=== PATIENT | female | born 1970 | race Caucasian/White ===

== ENCOUNTER → 2020-08-19 11:05 | Outpatient (BNVA) | payer OTHER, SELFPAY | PROVIDERS: PCP Nurse Practitioner; Referring Provider Nurse Practitioner; Visit Provider Specialist | DX: M25.511 Pain in right shoulder (principal) | CPT/HCPCS: 73030 ==

== ENCOUNTER 2021-01-25 10:14 | Outpatient (CLI) | payer OTHER, SELFPAY ==
--- NOTE | 2021-01-25 10:21 | MM_ITS ---
WS: [id number] BILATERAL SCREENING DIGITAL MAMMOGRAM WITH CAD HISTORY: SCREENING COMPARISON: 06/15/2017 and 09/29/2016 Bilateral CC and MLO views submitted. Computer aided detection analyzed. Breast composition: The breasts are almost entirely fatty. No suspicious masses, microcalcifications or architectural distortion. Benign calcifications in each breast. MM/[place] [address] IMPRESSION: BI-RADS: 2-Benign FOLLOW UP: 1 Year Follow-up
== END 2021-01-25 10:15 | disposition home or self-care (01) ==
LOC: RADSHAW 10:19
PROVIDERS: PCP Nurse Practitioner; Visit Provider Nurse Practitioner
DX: Z12.31 Encounter for screening mammogram for malignant neoplasm of breast (principal)
CPT/HCPCS: 77067

== ENCOUNTER 2021-02-01 09:25 | Inpatient (IN) | payer OTHER, SELFPAY ==
[2021-02-01] VITALS (76 sets, daily range): BP systolic 97–180; BP diastolic 47–87; PULSE 32–99; RESP 12–29; TEMP 36.6–36.9; O2SAT 82–100; BMI 31.9
--- NOTE | 2021-02-01 09:06 | ED_ITS ---
HPI - Chest Pain General: Chief Complaint: Chest Pain Stated Complaint: CP History of Present Illness: HPI narrative: 50-year-old female presents emergency room with complaint of chest pain that began this morning when she first got up. There is nothing anything that exacerbates or relieves it. Patient initially got up this morning and was not feeling well she had chest pain for about 3 hours. Radiated into her back she has some mild shortness of breath with this and diaphoresis she did have nausea and vomiting and loose acholic stools to the point of having diarrhea. She refers her chest pain to the lower sternal area radiating into the back. She states she initially thought it was due to food poisoning last night she ate several items she does not usually have including ice cream cake onion rings and moderate amount of alcohol. Patient has a history of asthma which is controlled by a and occasional use of as needed albuterol no history of diabetes hypertension or heart disease. MD complaint: chest pain Onset (ago): minute(s) Timing of current episode: constant Onset: during rest Pain location: substernal Pain radiation: back Severity: moderate Quality: sharp Relieving factors: nothing Exacerbating factors: nothing Associated symptoms: Reports nausea and vomiting; Deny abdominal pain, diaphoresis, dyspnea, fever(s), leg edema, palpitations, sense of impending doom or syncope Treatment prior to arrival: none Review of Systems Const: Denies: fever(s) or diaphoresis ENMT: Denies: throat pain, ear or mastoid pain, nasal discharge or nasal congestion Card: Denies: palpitations or syncope Resp: Denies: dyspnea GI: Reports: nausea and vomiting; Denies: abdominal pain : Denies: flank pain, difficulty voiding, dysuria, urinary frequency or urinary urgency Skin/Breast: Denies: rash or pruritus Physical Exam Const: COMMON NORMALS: no acute distress GENERAL APPEARANCE: cooperative and comfortable ORIENTATION/CONSCIOUSNESS: Yes awake, Yes oriented to person, Yes oriented to place and Yes oriented to time Neck/C-Spine: COMMON NORMALS: no JVD Resp: COMMON NORMALS: normal respiratory effort, No retractions, No use of accessory muscles and clear to auscultation bilaterally AUSCULTATION: clear to auscultation bilaterally Cardio: COMMON NORMALS: no JVD, regular rate, regular rhythm and No murmurs present (Cardio) RATE: regular rate RHYTHM: regular rhythm GI: COMMON NORMALS: No hepatosplenomegaly present AUSCULTATION: Yes normoactive bowel sounds PALPATION: Yes Tenderness to palpation present (GI) Details: RUQ, No Guarding due to palpation present (GI) and Yes No hepatosplenomegaly present Extremity: COMMON NORMALS: normal to inspection, capillary refill normal, no clubbing, cyanosis or edema, no calf tenderness and no pedal edema Neuro: SENSORIUM/ORIENTATION: Yes oriented to person, Yes oriented to place and Yes oriented to time Skin: COMMON NORMALS: no rashes or lesions noted GENERAL SKIN EXAM: no rashes or lesions noted Course Vital Signs: Vital signs: Vital Signs Temperature 98.3 F 02/02/21 19:55 Pulse Rate 71 02/03/21 06:00 Respiratory Rate 21 H 02/03/21 02:17 Blood Pressure 110/80 02/03/21 02:17 Pulse Oximetry 98 02/03/21 02:17 MDM - Chest Pain MDM Narrative: Medical decision making narrative: Acute NSTEMI with no evidence of ST elevation. Labs imaging and EKGs reviewed. Patient has been loaded with Plavix started on Lovenox and nitro. Discussed Dr. Combs patient is pain-free at this time he will admit primarily. Lab Data: Labs: Lab Results 02/01/21 02/01/21 02/01/21 09:09 09:09 09:09 WBC 15.3 10^3/uL H 10 ^3/uL (4.0-10.0) RBC 4.83 10^6/uL 10^6 /uL (4.1-5.3) Hgb 14.5 g/dL g/dL (11.5-15.3) Hct 43.8 % % (37.0-47.0) MCV 90.7 fl fl (81-99) MCH 30.0 pg pg (28.0-34.0) MCHC 33.1 g/dL g/dL (30.0-36.0) RDW 13.0 % % (12.1-15.1) Plt Count 339 10^3/cmm 10^3 /cmm (130-400) MPV 11.2 fL H fL (7.4-10.4) Neut % (Auto) 72.9 % % Lymph % (Auto) 19.2 % % [place] % (Auto) 4.3 % % Eos % (Auto) 2.6 % % Baso % (Auto) 0.7 % % Neut # (Auto) 11.15 10^3/uL H 1 0^3/uL (1.8-7.7) Lymph # (Auto) 2.9 10^3/uL 10^3/ uL (0.8-4.8) [place] # (Auto) 0.7 10^3/uL 10^3/ uL (0.2-0.9) Eos # (Auto) 0.4 10^3/uL 10^3/ uL (0.0-0.8) Baso # (Auto) 0.1 10^3/uL 10^3/ uL (0.0-0.1) Nucleated RBC % (a uto) 0 % % Nucleated RBCs # 0.0 /100WBC /100W BC Sodium 141 mmol/L mmol/L (136-145) Potassium 3.8 mmol/L mmol/L (3.5-5.1) Chloride 103 mmol/L mmol/L (98-107) Carbon Dioxide 24 mmol/L mmol/L (22-29) Anion Gap 17.8 (5-19) BUN 10 mg/dL mg/dL (6-20) Creatinine 0.7 mg/dL mg/dL (0.5-0.9) GFR Calculation 87.9 mL/min L mL/ min (90-130) Glucose 110 mg/dL mg/dL (65-115) Calculated Osmolal ity 292 mOsm/kg mOsm/ kg (285-295) Calcium 9.5 mg/dL mg/dL (8.5-10.5) Total Bilirubin 0.2 mg/dL mg/dL (0.15-1.2) AST 20 U/L U/L (0-32) ALT 11 U/L U/L (0-33) Alkaline Phosphata se 68 IU/L IU/L (35-105) Troponin T Baselin e 427 ng/L H* ng/L (0-10) Troponin T 120 Min jacquelyn Delta Troponin T Total Protein 7.0 g/dL g/dL (6.6-8.7) Albumin 4.4 g/dL g/dL (3.5-5.2) Globulin 2.6 g/dL g/dL (1.3-4.6) Lipase 31 U/L U/L (13-60) 02/01/21 11:30 WBC RBC Hgb Hct MCV MCH MCHC RDW Plt Count MPV Neut % (Auto) Lymph % (Auto) [place] % (Auto) Eos % (Auto) Baso % (Auto) Neut # (Auto) Lymph # (Auto) [place] # (Auto) Eos # (Auto) Baso # (Auto) Nucleated RBC % (a uto) Nucleated RBCs # Sodium Potassium Chloride Carbon Dioxide Anion Gap BUN Creatinine GFR Calculation Glucose Calculated Osmolal ity Calcium Total Bilirubin AST ALT Alkaline Phosphata se Troponin T Baselin e Troponin T 120 Min jacquelyn 683.1 ng/L H ng/L (0-10) Delta Troponin T 256.1 ABS# H* ABS # (0-10) Total Protein Albumin Globulin Lipase Discharge Plan Discharge Patient Disposition: Admitted As Inpatient Admit Provider: Kaila Combs Clinical Impression: Non-ST elevation ID (NSTEMI) Condition: Stable Coding Level of Care Code ED Shaper Set Up Operator for Chg Fwd Exam Detailed
--- NOTE | 2021-02-01 09:13 | US_ITS ---
WS: [id number] RIGHT UPPER QUADRANT ULTRASOUND HISTORY: Abdominal pain with nausea and vomiting. COMPARISON: None available. Liver: 16.1 cm in length. Liver is top normal size. No mass or bile duct dilatation. Very early herrera es of mild hepatic steatosis are suspected. Gallbladder: Normally distended gallbladder with no stones or wall thickening. CBD: 0.5 cm Pancreas: Normal size and echogenicity. Right kidney: 9.9 cm in length. Normal size and echogenicity. No hydronephrosis or mass. Aorta and IVC: Unremarkable abdominal aorta and IVC. No ascites. US/US gall bladder 15360 IMPRESSION: 1. Normal gallbladder. 2. Very mild early changes of hepatic steatosis. Otherwise negative.
--- NOTE | 2021-02-01 09:15 | ECG_ITS ---
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 Measurements Intervals [place] Rate: 51 P: 37 [place]: 174 QRS: 76 QRSD: 72 T: 55 QT: 429 QTc: 397 Interpretive Statements SINUS BRADYCARDIA LOW QRS VOLTAGE IN PRECORDIAL LEADS [QRS DEFLECTION < 1.0 mV IN CHEST LEADS] SEPTAL MYOCARDIAL INFARCTION , OF INDETERMINATE AGE [40+ ms Q WAVE IN V1/V2] No previous ECG available for comparison Electronically Signed On 02-01-2021 22:12:35 CDT by Nils Garcia M.D. [id number]
[2021-02-01 09:29] LABS: Basophils # 0.1 10^3/uL (0.0-0.1); Basophils % 0.7 %; Eosinophils # 0.4 10^3/uL (0.0-0.8); Eosinophils % 2.6 %; Hematocrit 43.8 % (37.0-47.0); Hemoglobin 14.5 g/dL (11.5-15.3); Lymphocytes # 2.9 10^3/uL (0.8-4.8); Lymphocytes % 19.2 %; Mean Corpuscular HGB Conc 33.1 g/dL (30.0-36.0); Mean Corpuscular Volume 90.7 fl (81-99); Mean Platelet Volume 11.2 fL (7.4-10.4); Monocytes # 0.7 10^3/uL (0.2-0.9); Monocytes % 4.3 %; Neutrophils # 11.15 10^3/uL (1.8-7.7); Neutrophils % 72.9 %; Nucleated Red Blood Cells % 0 %; Platelet Count 339 10^3/cmm (130-400); Red Blood Count 4.83 10^6/uL (4.1-5.3); White Blood Count 15.3 10^3/uL (4.0-10.0)
[2021-02-01] MEDS: sodium chloride 0.9% 1,000 ML 999 ML IV (09:37)
[2021-02-01 09:47] LABS: Alanine Aminotransferase 11 U/L (0-33); Albumin Level 4.4 g/dL (3.5-5.2); Alkaline Phosphatase 68 IU/L (35-105); Anion Gap 17.8 (5-19); Aspartate Amino Transferase 20 U/L (0-32); Blood Urea Nitrogen 10 mg/dL (6-20); Calcium 9.5 mg/dL (8.5-10.5); Carbon Dioxide 24 mmol/L (22-29); Chloride 103 mmol/L (98-107); Globulin 2.6 g/dL (1.3-4.6); Glomerular Filtration Rate 87.9 mL/min (90-130); Glucose 110 mg/dL (65-115); Lipase 31 U/L (13-60); Osmolality Calculated 292 mOsm/kg (285-295); Potassium 3.8 mmol/L (3.5-5.1); Sodium 141 mmol/L (136-145); Total Bilirubin 0.2 mg/dL (0.15-1.2)
[2021-02-01 09:58] LABS: Troponin(5th) Baseline 427 ng/L (0-10)
[2021-02-01] MEDS: aspirin 81 mg Chew Tablet 324 MG PO (10:09)
[2021-02-01] MEDS: enoxaparin 100 mg/mL Syringe 90 MG SUBCUT (10:10)
[2021-02-01] MEDS: clopidogrel 300 mg Tablet 600 MG PO (10:10)
[2021-02-01] MEDS: morphine 4 mg/mL SDV 1 mL 2 MG IVP ×2 (10:11→19:48)
--- NOTE | 2021-02-01 11:15 | ECG_ITS ---
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 Measurements Intervals [place] Rate: 52 P: 72 MN: 176 QRS: 53 QRSD: 77 T: 88 QT: 427 QTc: 399 Interpretive Statements SINUS BRADYCARDIA LOW QRS VOLTAGE IN PRECORDIAL LEADS [QRS DEFLECTION < 1.0 mV IN CHEST LEADS] NONSPECIFIC T-WAVE ABNORMALITY Compared to ECG 02/01/2021 10:29:29 Sinus rhythm no longer present T-wave abnormality still present Electronically Signed On 02-01-2021 22:11:48 CDT by Nils Garcia M.D. [id number]
--- NOTE | 2021-02-01 11:15 | ECG_ITS ---
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 Measurements Intervals [place] Rate: 60 P: 64 NC: 175 QRS: 64 QRSD: 86 T: 89 QT: 413 QTc: 416 Interpretive Statements SINUS RHYTHM LOW QRS VOLTAGE IN PRECORDIAL LEADS [QRS DEFLECTION < 1.0 mV IN CHEST LEADS] POSSIBLE RIGHT VENTRICULAR CONDUCTION DELAY [RSR (QR) IN V1/V2] NONSPECIFIC T-WAVE ABNORMALITY Compared to ECG 02/01/2021 09:17:41 T-wave abnormality now present Sinus bradycardia no longer present Myocardial infarct finding no longer present Electronically Signed On 02-01-2021 22:22:33 CDT by Nils Garcia M.D. [id number]
[2021-02-01 12:31] LABS: Troponin 5 2HR 683.1 ng/L (0-10); Troponin 5 2HR Delta 256.1 ABS# (0-10)
--- NOTE | 2021-02-01 13:23 | PC.PHAR ---
PT STATES SHE TAKES NO RX MEDICATION-[facility] EITHER
--- NOTE | 2021-02-01 15:15 | ECG_ITS ---
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 Measurements Intervals [place] Rate: 59 P: 58 MO: 184 QRS: 52 QRSD: 82 T: 90 QT: 411 QTc: 409 Interpretive Statements SINUS BRADYCARDIA LOW QRS VOLTAGE IN PRECORDIAL LEADS [QRS DEFLECTION < 1.0 mV IN CHEST LEADS] POSSIBLE RIGHT VENTRICULAR CONDUCTION DELAY [RSR (QR) IN V1/V2] NONSPECIFIC T-WAVE ABNORMALITY Compared to ECG 02/01/2021 11:21:46 No significant changes Electronically Signed On 02-01-2021 22:21:01 CDT by Nils Garcia M.D. [id number]
[2021-02-01 17:30] LABS: Troponin 5 6HR 658.2 ng/L (0-10); Troponin 5 6HR Delta 231.2 ng/L (0-12)
--- NOTE | 2021-02-01 18:00 | PC.NURSE ---
Patient c/o mild chest pain under left breast. Patient rates pain at 2/10. Oxygen placed on patient at 2l/nc and pain resolved in 15 minutes.
[2021-02-01] MEDS: D5-NS 0.45% + KCL 20 mEq 20 MEQ/1,000 ML BAG 100 MEQ IV (18:11)
--- NOTE | 2021-02-01 19:16 | PM.HP ---
Providers/Chief Complaint Admitting Physician: Kaila Combs MD Chief Complaint: CP History of Present Illness Emiliana Shea is a 50 year old female past medical history significant for strong family's of coronary artery disease, non-smoker nondiabetic started having diarrhea diaphoresis and abdominal pain radiating to her chest. After a few hours she decided to come to the emergency room. Initially it was thought she may have a gallstone but she was ruled in with third-generation troponin which peaked to 600. Abdominal ultrasound also ruled out acute cholecystitis. She was also noticed to be bradycardic therefore beta-fernando was not started she was given Lovenox as an anticoagulation and loaded with 600 mg of Plavix. I have been asked to assist in her care when I saw the patient at that time she was denying chest pain she think it is much better and almost resolved. She has been admitted to [facility] for possible left heart cath/PCI if indicated in the morning. Patient has been explained all risk benefit and already for the procedure she would like to proceed with it. I will ask for echocardiogram to assess LV function . Review of Systems Const: Denies: fever(s) or diaphoresis ENMT: Denies: throat pain, ear or mastoid pain, nasal discharge or nasal congestion Card: Denies: palpitations or syncope Resp: Denies: dyspnea GI: Reports: nausea and vomiting; Denies: abdominal pain : Denies: flank pain, difficulty voiding, dysuria, urinary frequency or urinary urgency Skin/Breast: Denies: rash or pruritus Medications/Allergies Home Medications Medication Instructions Recorded Confirmed Last Taken Type aspirin [Adult Aspirin Regimen] 81 mg PO DAILY #90 tab 02/03/21 02/10/21 Unknown Rx atorvastatin 80 mg PO BEDTIME #30 tab 02/03/21 02/10/21 Unknown Rx ciprofloxacin HCl 250 mg PO BID@0900,2100 #14 tab 02/03/21 02/10/21 Unknown Rx clopidogrel 75 mg PO DAILY #90 tab 02/03/21 02/10/21 Unknown Rx lisinopril 2.5 mg PO DAILY #30 tab 02/03/21 02/10/21 Unknown Rx metoprolol succinate 12.5 mg PO DAILY #60 tab 02/03/21 02/10/21 Unknown Rx albuterol sulfate 90 mcg/actuation 1 puff INHALATION QID 02/10/21 02/10/21 Unknown History aerosol inhaler Allergies Allergy/AdvReac Type Severity Reaction Status Date / Time ANESTHESIA Allergy Unknown Uncoded 02/10/21 11:14 PFSH Acute PFSH: Medical History (Updated 02/10/21 @ 11:42 by CHITRA Borges) Takotsubo cardiomyopathy Social History Smoking and tobacco status: former smoker Vitals/I&O/Wt Last Vital Signs Temp 98.2 F 02/01/21 18:29 Pulse 68 02/01/21 18:29 Resp 12 02/01/21 18:29 BP 117/79 02/01/21 18:29 Pulse Ox 97 02/01/21 18:29 02/01/21 02/01/21 02/01/21 06:59 14:59 22:59 Intake Total 120 / 120 Balance 120 / 120 Weight last 48 hrs Weight 198 lb Physical Exam Narrative: EXAM NARRATIVE: GENERAL: Patient is alert, awake and oriented x3. NECK: No jugular vein distension. HEENT: No cyanosis. No icterus. No pallor. HEART: Regular S1 and S2. No murmur, rub or gallop. LUNGS: Clear to auscultate bilaterally. ABDOMEN: Soft, nontender and nondistended. Positive bowel sounds. No guarding, rebound or tenderness. CENTRAL NERVOUS SYSTEM: Grossly nonfocal. EXTREMITIES: Lower extremities without edema bilaterally. Data : 02/03/21 05:39 02/03/21 05:39 A&P Assessment and plan (1) Non-ST elevation GA (NSTEMI): As above we will admit patient to CSU. She has been loaded with Plavix given aspirin. She is on anticoagulation. Beta-fernando is on hold due to bradycardia. Currently she is chest pain-free we will monitor her with telemetry. In the morning we will proceed with left heart cath/PCI if indicated. I will ask for echocardiogram to assess LV function. Status: Resolved Attestations Medical Necessity Statement*: I am expecting her stay to cross more than 2 midnights. Coding Level of Care Code New Pt Acute Upper And Bottom Lacer Hand for Durga Fwd Patient Type New History Detailed Exam Detailed Medical Decision Making Moderate Complexity Diagnoses Non-ST elevation GA (NSTEMI) I21.4
[2021-02-01] MEDS: atorvastatin 40 mg Tablet 80 MG PO (19:49)
[2021-02-01] MEDS: ondansetron 2 mg/ML SDV 2 mL 4 MG IVP (22:14)
[2021-02-02] VITALS (27 sets, daily range): BP systolic 101–127; BP diastolic 62–95; PULSE 61–83; RESP 14–29; TEMP 36.8; O2SAT 86–97
--- NOTE | 2021-02-02 04:38 | PC.NURSE ---
Frequent safety and comfort rounds continue. Orders and/or nursing care completed as indicated. Patient monitored for response to intervention and treatment(s). Education provided includes cardiac catherization procedure for today. Medications and what to expect. 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 Will continue to monitor. Patient to go to medical laboratory technicians today at 10am. NS infusing. Patient prepped for surgery.
[2021-02-02 04:47] LABS: Basophils # 0.1 10^3/uL (0.0-0.1); Basophils % 0.5 %; Eosinophils # 0.1 10^3/uL (0.0-0.8); Eosinophils % 0.7 %; Hematocrit 42.2 % (37.0-47.0); Hemoglobin 13.5 g/dL (11.5-15.3); Lymphocytes # 3.6 10^3/uL (0.8-4.8); Lymphocytes % 21.4 %; Mean Corpuscular Hemoglobin 29.5 pg (28.0-34.0); Mean Corpuscular Volume 92.3 fl (81-99); Mean Platelet Volume 11.3 fL (7.4-10.4); Monocytes # 0.9 10^3/uL (0.2-0.9); Monocytes % 5.6 %; Neutrophils # 11.98 10^3/uL (1.8-7.7); Neutrophils % 71.4 %; Nucleated Red Blood Cells % 0 %; Platelet Count 289 10^3/cmm (130-400); Red Blood Count 4.57 10^6/uL (4.1-5.3); Red Cell Distribution Width 13.3 % (12.1-15.1); White Blood Count 16.8 10^3/uL (4.0-10.0)
[2021-02-02 05:14] LABS: Anion Gap 13.2 (5-19); Blood Urea Nitrogen 7 mg/dL (6-20); Calcium 8.9 mg/dL (8.5-10.5); Carbon Dioxide 26 mmol/L (22-29); Chloride 105 mmol/L (98-107); Glomerular Filtration Rate 87.9 mL/min (90-130); Glucose 115 mg/dL (65-115); Osmolality Calculated 289 mOsm/kg (285-295); Potassium 4.2 mmol/L (3.5-5.1); Sodium 140 mmol/L (136-145)
--- NOTE | 2021-02-02 07:17 | PC.NURSE ---
Frequent safety and comfort rounds continue. Orders and/or nursing care completed as indicated. Patient monitored for response to intervention and treatment(s). Education provided includes pain and nausea medications. Patient and/or senior account representative verbalized understanding. . Will continue to monitor.
[2021-02-02 08:14] LABS: SARS Covid-2 Antigen Negative (Negative)
[2021-02-02] MEDS: diphenhydrAMINE 50 mg Capsule PO (09:16)
[2021-02-02] MEDS: sodium chloride 0.9% 1,000 ML 50 ML IV (09:17)
[2021-02-02] MEDS: ALPRAZolam 0.5 mg Tablet 0.25 MG PO (09:40)
--- NOTE | 2021-02-02 09:41 | XACV_ITS ---
Exam Room: [facility] Ht: 168 cm Wt: 90 kg BSA: 2.08 m2 Gender: Female : 1970 Exam Priority: Routine Procedure(s): Procedure Description: Diagnostic procedure Procedure Description: Left Heart Catheterization Procedure Description: Left ventriculography Procedure Description: Coronary Angiography Garret KIRK; Diagnostic Cath Status: Urgent Diagnostic Findings * No disease noted in the Left Main, Left Anterior Descending, Right, or Circumflex coronary arteries. * Coronary angiography shows right dominance. Conclusions 1. No disease noted in the Left Main, Left Anterior Descending, Right, or Circumflex coronary arteries. 2. The apex, mid posterior, mid septum, anterolateral, mid inferior santiago are dyskinetic. 3. All other visualized santiago normal. 4. Severe left ventricular systolic dysfunction. Ejection fraction of 25%. Recommendations * 1-Return to inpatient for close monitoring and routine cath care2-Risk factor modification for secondary prevention3-Statin and aspirin 81 mg life--long, if tolerated4-Patient was pre-loaded with 300 mg of Plavix, continue Plavix 75mg p.o. daily for at least one year. We will assess at the end of one year again to continue if further or not5-Continue optimal medical management for stress-induced cardiomyopathy6-Follow up with Dr. Combs in four weeks and your primary care in 10 days. Diagnostic RX Recommendation: medical therapy and/or counseling Ventriculography Ejection Fraction: 25.0 % Pressures Phase:Rest AO : 114 / 79 ( 95 ) @ 9:28:00 AM 138 / 66 ( 99 ) @ 9:43:00 AM 136 / 92 ( 113 ) @ 9:43:00 AM LV : 137 / 17 / 36 @ 9:41:00 AM 141 / 18 / 39 @ 9:43:00 AM Clinical Evaluation EBL: 5mL-10mL Procedural Details Procedure Consent Obtained. Pre-Procedure Time Out. Identified patient by full name and date of as verbalized by the patient/guarantor. Does the consent match the physician's order: Yes. Accurate & Complete Informed Consent: Yes. Inpatient/Outpatient History & Physical on Chart: Yes. If H&P is completed, is and addenduem needed: Yes; If yes, is the addendum complete: N/A. Visualize and Verify Site with Patient/Guarantor: N/A. Relevant Radiology Images available: N/A. Pre-op teaching completed and patient verbalized understanding. The risks, benefits, and alternatives of sedation and/or procedure were discussed by physician. The patient agrees to continue. Procedure started. [facility] Clinical Fraility Score: 3: Managing Well. Field Seismologist Indications: ACS <= 24 hours. Chest Pain Symptom Assessment: Atypical Angina. Cardiovascular Instability: No. Correct patient, site and procedure confirmed by cath team. PERRLA. Strong, equal hand finisher special stocks bilaterally. Lungs clear x 5 lobes. IV Site on Arrival: 18 gauge in the left anticubital. IV Fluids: 0.9% NaCl at KVO. 0 mL infused prior to dental laboratory assistant. Oxygen started at 2liters/min via nasal canula. right groin was prepped with chloroprep then draped in the usual sterile fashion. right radial was prepped with chloroprep then draped in the usual sterile fashion. Physician notified. Tio العلي dental technician metal for procedure. Irene Mcfadden RN circulating for procedure. Baseline sample Acquired. HR: 79 BPM. Equipment: 6F - Radial. Cardiac Cath Pack. ACIST Manifold Kit Model BT 2000. Heparinized Saline (2 units/mL), 1000 mL bag. Physician arrived. Physician scrubbed in. Immediate Pre-Procedure Time Out. Correct Patient: Yes; Correct Procedure: Yes; Correct Site: Yes; Correct Patient Position: Yes; Correct Supplies: Yes; Dried Flammable Prep: Yes; Blood Products Available: N/A;. Lidocaine 1% infiltrated to the right radial. Arterial access obtained. A 5 macanese TIG catheter in over wire. Multiple views taken of left coronary artery. Catheter redirected to the RCA. Multiple views taken of right coronary artery. Catheter removed over the exchange wire. A 5 macanese Angled Pig catheter in over wire. EDP Sample taken: LV 137/17,36; HR: 81 BPM; SpO2: 97%. LV gram performed in GAMEZ @ 10 mL/second for a total of 30 mL. EDP Sample taken: LV 141/18,39; HR: 83 BPM; SpO2: 97%. Pullback taken: LV Off; AO Off; Mean: , Peak to Peak: , SEP: ; HR: 75 BPM; SpO2: 97%. Catheter removed over the exchange wire. Physician scrubbed out. A TR Band was successful obtaining hemostatsis at the Right Radial artery insertion site. TR band placed. Hemostasis obtained. Post Procedure: Pulses reassessed and unchanged. PERRLA. Strong, equal hand finisher special stocks bilaterally. No VTE prophylaxis required. Post-op diagnosis: takutsubo. Contrast type used: Omnipaque 300 mgI/mL, 500 mL bottle. Medication's Wasted: Lidocaine 1% = 16 mL. Medication's Wasted: Nitro = 49.8 mg. Medication's Wasted: Heparin = 1000 units. Medication's Wasted: Other = fentanyl 25 mcg. Medication's Wasted: Other = versed 2 mg. Total IV fluids: 113 mL. Complications: none. Estimated blood loss: 5mL-10mL. Procedure completed. Patient transferred by wheelchair to 1st floor. Vital chart was stopped. Access Site Site: Right Radial artery Sheath Size: 6 Fr Hemostasis Method: TR Band Hemostasis Success: Successful Procedure Medications Start: 10:03 AM Stop: 10:03 AM Medication: Versed Amount: 1 mg Route: I.V. Start: 10:03 AM Stop: 10:03 AM Medication: Fentanyl Amount: 25 mcg Route: I.V. Start: 10:10 AM Stop: 10:10 AM Medication: Versed Amount: 1 mg Route: I.V. Start: 10:10 AM Stop: 10:10 AM Medication: Fentanyl Amount: 25 mcg Route: I.V. Start: 10:14 AM Stop: 10:14 AM Medication: Versed Amount: 1 mg Route: I.V. Start: 10:15 AM Stop: 10:15 AM Medication: Versed Amount: 1 mg Route: I.V. Start: 10:15 AM Stop: 10:15 AM Medication: Fentanyl Amount: 25 mcg Route: I.V. Start: 10:23 AM Stop: 10:23 AM Medication: Nitrogylcerin Amount: 200 mcg Route: I.A. Start: 10:27 AM Stop: 10:27 AM Medication: Heparin Amount: 5000 units Route: I.V. I, the attending physician, have reviewed and verified all procedure medications. Yes, all medications given per verbal order History/Risk Factors Hypertension: No Dyslipidemia: No Peripheral Arterial Disease (PAD): No Myocardial Infarction (MA): No Obesity: No Renal Disease: No Prior Interventions PCI: No CABG: No Valve Surgery: No Report Signatures Finalized by Kaila Combs MD on 02/14/2021 10:29 PM
--- NOTE | 2021-02-02 10:06 | W.PM.OPSUD ---
Surgery/Procedure H&P Update DATE OF PROCEDURE: February 02, 2021 DATE H&P PERFORMED: 02/01/21 H&P UPDATE INFORMATION: I have reviewed H&P completed within last 30 days, I have examined patient prior to procedure and No changes to prior documentation PREOP DIAGNOSIS: NSTEMI PATIENT REASSESSED PRIOR TO SEDATION, WITH NO CHANGE NOTED: Yes PHYSICAL EXAM: alert, oriented x 3 and clear to auscultation bilaterally AIRWAY EVAL/ANESTHESIA PLAN: ASA II and Risks, benefits & alternatives of sedation and/or procedure discussed ADDITIONAL INFORMATION: All the risk benefit and alternative for the procedure including risk for stroke contrast-induced nephropathy leading to permanent or transient dialysis risk for urgent emergent bypass surgery transfusion vascular injury allergic reaction was explained in detail. Risk for hematoma infection pseudoaneurysm was explained. Patient would like to proceed with it. She is a candidate for DAPT
[2021-02-02 10:15] LABS: Chol HDL Ratio 3.33 mg/dL (0.0-4.40); Cholesterol 163 mg/dL (0-200); HDL Cholesterol 49 mg/dL (60-100); LDL Cholesterol Calculated 90 mg/dL (50-129); Triglycerides 120 mg/dL (0-150); VLDL Cholestrol Calculation 24 mg/dL (0-30)
--- NOTE | 2021-02-02 11:23 | PM.PN ---
Subjective Subjective: Interval history: Patient underwent left heart cath noted to have stress-induced cardiomyopathy with normal coronaries and ballooning of apex Vitals/I&O/Wt Last Vital Signs Temp 98.3 F 02/02/21 00:30 Pulse 69 02/02/21 01:05 Resp 19 H 02/02/21 01:05 BP 101/67 02/02/21 01:05 Pulse Ox 93 02/02/21 01:05 02/01/21 02/02/21 02/02/21 22:59 06:59 14:59 Intake Total 120 / 120 1999 Balance 120 / 120 1999 Weight last 48 hrs Weight 198 lb Physical Exam Narrative: EXAM NARRATIVE: GENERAL: Patient is alert, awake and oriented x3. NECK: No jugular vein distension. HEENT: No cyanosis. No icterus. No pallor. HEART: Regular S1 and S2. No murmur, rub or gallop. LUNGS: Clear to auscultate bilaterally. ABDOMEN: Soft, nontender and nondistended. Positive bowel sounds. No guarding, rebound or tenderness. CENTRAL NERVOUS SYSTEM: Grossly nonfocal. EXTREMITIES: Lower extremities without edema bilaterally. Const: COMMON NORMALS: alert Resp: COMMON NORMALS: clear to auscultation bilaterally AUSCULTATION: clear to auscultation bilaterally Neuro: SENSORIUM/ORIENTATION: Yes alert Data : 02/02/21 04:11 02/02/21 04:11 A&P Assessment and plan (1) Takotsubo cardiomyopathy: Patient underwent left heart cath noted to have stress-induced cardiomyopathy with normal coronaries. Left ventricular ejection fraction was 25%. Will add beta-fernando SHARDA inhibitor will continue clopidogrel for 1 year. Will add also isosorbide mononitrate to the regimen Status: Acute Attestations Medical Necessity Statement*: Patient require continued hospitalization for above defined care. Coding Level of Care Code Established Pt Acute Bookmobile Clerk for Durga Sorto Patient Type Established History Detailed Exam Detailed Medical Decision Making Moderate Complexity Diagnoses Takotsubo cardiomyopathy I51.81
[2021-02-02] MEDS: clopidogrel 75 mg Tablet PO (13:01)
[2021-02-02] MEDS: metoprolol succinate ER (24 HR) 25 mg Tablet 12.5 MG PO (13:01)
[2021-02-02] MEDS: enoxaparin 40 mg/0.4 mL Syringe SUBCUT (13:02)
[2021-02-02 15:34] LABS: Add Urine Microscopic? YES; Bacteria Urine 2+ /hpf; Bilirubin Urine Neg (Negative); Blood Urine 3+ (Negative); Glucose Urine UA Norm (Normal); Ketones Urine 1+ (Negative); Leukocyte Esterase Urine Negative (Negative); Mucus Urine 1+ /hpf; Nitrate Urine Negative (Negative); Protein Urine Neg (Negative); Specific Gravity, Urine 1.015 (1.005-1.030); Urine Appearance Hazy (CLEAR); Urine Color Yellow (Yellow); Urobilinogen Urine Norm (Negative); pH Urine 5 (5-7)
[2021-02-02 15:35] LABS: Add Urine Culture? Yes
[2021-02-02] MEDS: atorvastatin 40 mg Tablet 80 MG PO (19:54)
--- NOTE | 2021-02-02 20:00 | PC.NURSE ---
Received report from EDGAR Garay. Patient resting in bed with eyes closed. Arouses easily. Patient is s/p [facility] with right radial access. Dressing in place remains c,d,i with no s/s of bleeding or hematoma formation observed. Patient denies pain or needs. No distress observed.
[2021-02-03 02:17] VITALS: BP 110/80; PULSE 77; RESP 21; O2SAT 98
[2021-02-03] MEDS: temazepam 15 mg Capsule PO (02:52)
[2021-02-03 06:00] VITALS: PULSE 71
[2021-02-03 06:10] LABS: Basophils # 0.1 10^3/uL (0.0-0.1); Basophils % 0.4 %; Eosinophils # 0.2 10^3/uL (0.0-0.8); Eosinophils % 1.4 %; Hematocrit 37.9 % (37.0-47.0); Lymphocytes % 20.6 %; Mean Corpuscular HGB Conc 31.7 g/dL (30.0-36.0); Mean Corpuscular Hemoglobin 29.7 pg (28.0-34.0); Mean Corpuscular Volume 93.8 fl (81-99); Mean Platelet Volume 11.2 fL (7.4-10.4); Monocytes % 7.1 %; Neutrophils # 10.36 10^3/uL (1.8-7.7); Neutrophils % 70.3 %; Nucleated Red Blood Cells % 0 %; Platelet Count 243 10^3/cmm (130-400); Red Blood Count 4.04 10^6/uL (4.1-5.3); Red Cell Distribution Width 13.2 % (12.1-15.1); White Blood Count 14.7 10^3/uL (4.0-10.0)
[2021-02-03 06:26] LABS: Anion Gap 12.8 (5-19); Blood Urea Nitrogen 6 mg/dL (6-20); Calcium 8.4 mg/dL (8.5-10.5); Carbon Dioxide 24 mmol/L (22-29); Chloride 105 mmol/L (98-107); Creatinine Clr Calc Pharmacy 148.5703; Glomerular Filtration Rate 129.6 mL/min (90-130); Glucose 96 mg/dL (65-115); Osmolality Calculated 283 mOsm/kg (285-295); Potassium 3.8 mmol/L (3.5-5.1); Sodium 138 mmol/L (136-145)
--- NOTE | 2021-02-03 06:36 | PC.NURSE ---
Frequent safety and comfort rounds continue. Orders and/or nursing care completed as indicated. Patient monitored for response to intervention and treatment(s). Education provided includes medications. Patient and/or manufacturing sales representative verbalize understanding. Will continue to monitor.
[2021-02-03] MEDS: metoprolol succinate ER (24 HR) 25 mg Tablet 12.5 MG PO (08:23)
[2021-02-03] MEDS: clopidogrel 75 mg Tablet PO (08:24)
[2021-02-03 08:33] VITALS: PULSE 71; O2SAT 93
[2021-02-03] MEDS: ciprofloxacin 500 mg Tablet 250 MG PO (10:56)
[2021-02-03] MEDS: enoxaparin 40 mg/0.4 mL Syringe SUBCUT (11:54)
[2021-02-03 12:04] VITALS: BP 118/69; PULSE 75; RESP 22; TEMP 37.2; O2SAT 93
[2021-02-03 13:41] VITALS: BP 118/69; PULSE 75; RESP 22; TEMP 37.2; O2SAT 93
--- NOTE | 2021-02-03 14:13 | PC.NURSE ---
IV was removed, education was provided, questions were answered and no concerns.
--- NOTE | 2021-02-04 09:44 | PC.SOCIAL ---
discharge follow up call made, spoke with patient. she denies chest pain or sob. she reports she is feeling good, just some soreness. pt picked up all medications from the pharmacy yesterday, she is taking as prescribed and understands what all medications are for. patient is aware of follow up appointment dates and times with Guerda Arredondo and Dr. Combs. Patient denies any concerns with incision to wrist. she reports you can barely see it Patient denies any questions or concerns.
--- NOTE | 2021-02-23 21:56 | PM.DCS ---
Discharge Providers Date of Admission: 02/01/21 13:43 Date of Discharge: February 23, 2021 Attending Provider at Admission: Kaila Combs MD Attending Provider at Discharge: Kaila Combs MD Diagnoses at Discharge Discharge Diagnosis (1) Non-ST elevation IN (NSTEMI): Status: Resolved Reason for Visit Reason for Visit: CP Hospital Course Hospital Course 50-year-old female past medical history significant for history of bradycardia presented with upper abdominal pain without any chest pressure or significant EKG changes she was noted to have troponin of 600 upon presentation and in the emergency room. She was ruled in for non-ST elevation IN. She was taken to the Vulcanizer Operator. She was noted to have normal coronaries but severely depressed LV function. LV gram was consistent with stress-induced cardiomyopathy. Echocardiogram was also obtained which confirmed the significantly depressed LV function. Patient medicine were optimized. She would like to go home as she is feeling much better. Since she is stable and doing fine from cardiovascular perspective we will discharge patient home. She is advised to follow-up with cardiology clinic in 7 days. Patient has been advised in case of worsening of shortness of breath chest pain dizziness PND orthopnea she should call us or go to emergency room. Physical Exam Narrative: EXAM NARRATIVE: GENERAL: Patient is alert, awake and oriented x3. NECK: No jugular vein distension. HEENT: No cyanosis. No icterus. No pallor. HEART: Regular S1 and S2. No murmur, rub or gallop. LUNGS: Clear to auscultate bilaterally. ABDOMEN: Soft, nontender and nondistended. Positive bowel sounds. No guarding, rebound or tenderness. CENTRAL NERVOUS SYSTEM: Grossly nonfocal. EXTREMITIES: Lower extremities without edema bilaterally. 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 Routin e Exams 02/02/21 09:41 Completed US gall bladder 7 6705 Stat Ultrasound 02/01/21 09:13 Completed Vitals: Last Vital Signs Temp 98.9 F 02/03/21 13:41 Pulse 75 02/03/21 13:41 Resp 22 H 02/03/21 13:41 BP 118/69 02/03/21 13:41 Pulse Ox 93 02/03/21 13:41 Discharge Plan Discharge Patient Disposition: Home Condition: Stable Prescriptions: New atorvastatin 40 mg Tablet 80 mg PO BEDTIME Qty: 30 RF: 3 clopidogrel 75 mg Tablet 75 mg PO DAILY Qty: 90 RF: 4 ciprofloxacin HCl 500 mg Tablet 250 mg PO BID@0900,2100 Qty: 14 RF: 0 metoprolol succinate 25 mg Tablet Extended Release 24 Hr 12.5 mg PO DAILY Qty: 60 RF: 3 lisinopril 2.5 mg tablet 2.5 mg PO DAILY Qty: 30 RF: 3 Adult Aspirin Regimen 81 mg tablet,delayed release (DR/EC) 81 mg PO DAILY Qty: 90 RF: 5 Discontinued acetaminophen [Tylenol Arthritis Pain] 650 mg Tablet Extended Release 1,300 mg PO Q6H PRN (Reason: Pain) RF: 0 No Action albuterol sulfate 90 mcg/actuation HFA aerosol inhaler 1 puff inhalation QID RF: 0 Discharge Orders: Discharge Order (Routine); Ordered 02/03/21 Ordered By: Kaila Combs Referrals: Kaila Combs MD [Physician] - (You have an appointment with Dr. Combs on March 29 at 3:15pm, please check in at 3:00pm. If you have any questions or concerns please call the office.) Guerda Arredondo FNP [Nurse Practitioner] - (You will see Guerda Arredondo on February 10, at 11:00am. Youll need to check in at 10:45am and bring your insurance and medication list with you. If you have any questions or concerns please call the office. ) Discharge Diet: Cardiac and Low Salt Discharge Activity: Increase activity as tolerated Patient Instructions: Cateterismo susi del coraz?n (DC), Opioid Safety, Post Angiogram Home Care Instructions Activity Restrictions/Additional Instructions: Follow-up with Dr. Combs in 6 weeks. Follow-up with Ms. Guerda Arredondo cardiology nurse practitioner in 7 days. Discharge Attestations Time Spent in Discharge Care*: less than 30 min Specific Discharge Activities: educating patient and educating and/or supporting family/caregiver Quality Metrics Clinical Quality Measures During this hospital stay, did patient experience: None Coding Level of Care Code Established Pt Acute Chg FW DC note Patient Type Established History Detailed Exam Detailed Medical Decision Making Moderate Complexity Diagnoses Non-ST elevation IN (NSTEMI) I21.4
== END 2021-02-03 14:12 | disposition home or self-care (01) | DRG 281 ==
LOC: ER 12:59 → CSU 14:16
PROVIDERS: Admitting Provider Internal Medicine Cardiovascular Disease; Emergency Provider Family Medicine; Visit Provider Internal Medicine Cardiovascular Disease
PROC: B2151ZZ Fluoroscopy of Left Heart using Low Osmolar Contrast (ICD-10-PCS; principal; 2021-02-02 10:00)
DX: I21.4 Non-ST elevation (NSTEMI) myocardial infarction (principal); I51.81 Takotsubo syndrome; Z82.49 Family history of ischemic heart disease and other diseases of the circulatory system; Z87.891 Personal history of nicotine dependence
CPT/HCPCS: 36415; 76705; 80048; 80053; 80061; 81001; 83690; 84484; 85025; 87086; 87426; 93005; 93452; 96372; 96374; 99285; C1769; C1887; C1894; J1644; J1650; J2250; J2270; J2405; J3010; J3490; J7030; Q0163; Q9967

== ENCOUNTER 2021-02-10 | Outpatient (CLI) | payer OTHER, SELFPAY | END 2021-02-10 00:01 | disposition home or self-care (01) | LOC: RAD 09-13 13:14 | PROVIDERS: PCP Nurse Practitioner; Visit Provider Nurse Practitioner Family | DX: I51.81 Takotsubo syndrome (principal) | CPT/HCPCS: 80048 ==

== ENCOUNTER → 2021-07-19 16:09 | Outpatient (BNVA) | payer OTHER, SELFPAY | PROVIDERS: PCP Nurse Practitioner; Visit Provider Surgery | DX: Z11.52 Encounter for screening for COVID-19 (principal) | CPT/HCPCS: 87635 ==

== ENCOUNTER 2021-07-22 06:38 | Day surgery (SDC) | payer OTHER, SELFPAY ==
[2021-07-21 08:09] VITALS: BMI 32.5
--- NOTE | 2021-07-22 06:33 | P.HP_ITS ---
Same Day Surgery H&P Indication for Procedure/HPI DATE OF PROCEDURE: July 22, 2021 CHIEF COMPLAINT/INDICATIONFOR SURGICAL PROCEDURE: Screening colonoscopy PREOP DIAGNOSIS: NSTEMI PLANNED PROCEDURE: Operation Date: 07/22/21 07:30 Proposed Procedures p Colonoscopy 59081 Z12.11(Not Applicable) - Forrest Nicholson MD 05/20/2021 This is a pleasant 51 years old female patient never had a screening colonoscopy before.? Patient is referred f to my practice to discuss the procedure.? Denies any bleeding per rectum or history of colon cancer or nonintentional weight loss. Interim history 07/22/2021 Patient comes today for screening colonoscopy. ROS All systems have been reviewed negative except as per the above or per problem list Medications/Allergies* Home Medications Medication Instructions Recorded Confirmed Type albuterol sulfate 90 mcg/actuation 1 puff INHALATION QID 02/10/21 07/21/21 History aerosol inhaler Allergies/Adverse Reactions Allergy/AdvReac Type Severity Reaction Status Date / Time tramadol AdvReac ADR-Confusi Verified 07/22/21 07:25 on ANESTHESIA AdvReac Unknown ADR-Confusi Uncoded 07/22/21 06:54 on Pertinent History/Comorbid Conditions* Medical History (Updated 07/05/21 @ 10:56 by Guerita eBll) Takotsubo cardiomyopathy Family History (Updated 03/03/21 @ 13:16 by Stefanie Harrell RN) Stroke Denies family history of Diabetes CAD (coronary artery disease) Social History Smoking and tobacco status: former smoker Alcohol intake: current Alcohol intake frequency: holidays/special occasions only Pertinent Exam Findings alert, oriented x 3, regular rate & rhythm and procedure specific exam findings (Abdominal examination nontender nondistended soft) Recommendations Surgery/Procedure today (Screening colonoscopy) Coding Level of Care Code Acute Assistant Operator for Durga Sorto
[2021-07-22 06:54] VITALS: BP 132/96; PULSE 77; RESP 18; TEMP 36.1; O2SAT 94
[2021-07-22] MEDS: sodium chloride 0.9% 1,000 ML 30 ML IV (07:06)
--- NOTE | 2021-07-22 07:08 | ANES.PREANE2 ---
Pre-Anesthetic Assessment Height/Weight: Height 1.68 m Weight 91.626 kg Temp Pulse Resp BP Pulse Ox 97.0 F L 77 18 132/96 94 07/22/21 06:54 07/22/21 06:54 07/22/21 06:54 07/22/21 06:54 07/22/21 06:54 Preop Diagnosis: Screening colonoscopy Operation Date: 07/22/21 07:30 Proposed Procedures p Colonoscopy 66884 Z12.11(Not Applicable) - Forrest Nicholson MD Was Beta Simone taken within 24 hours: N/A Was Clonidine taken within 24 hours: N/A Last intake: Intake Last Liquid Date 07/21/21 Last Liquid Time 05:00 Last Solid Date 07/20/21 Last Solid Time 16:00 Social No alcohol and No tobacco Exam alert, oriented x 3, clear to auscultation bilaterally and regular rate & rhythm Airway Submandibular: within normal limits Cervical ROM: within normal limits Mallampati: Class II Dentition: full History/ROS No significant history except as noted and No significant complaints Pulmonary Asthma Stable recently CV/HEM Myocardial Infarction Takotsubo cardiomyopathy.EF est 25% None reported Hepatic None reported GI None reported Metabolic None reported Musc/skel None reported Neuropsych Anxiety Anesthetic Plan ASA status: 3 Anesthesia: MAC Risk of > 500 ml blood loss (7ml/kg in children): No Medications/Allergies Home Medications Medication Instructions Recorded Confirmed Last Taken Type aspirin 81 mg tablet,delayed 81 mg PO DAILY #90 tab 02/03/21 07/22/21 07/18/21 Rx release (Adult Aspirin Regimen) atorvastatin 40 mg tablet 80 mg PO BEDTIME #30 tab 02/03/21 07/22/21 Unknown Rx clopidogrel 75 mg tablet 75 mg PO DAILY #90 tab 02/03/21 07/22/21 07/18/21 Rx lisinopril 2.5 mg tablet 2.5 mg PO DAILY #30 tab 02/03/21 07/22/21 Unknown Rx metoprolol succinate 25 mg 12.5 mg PO DAILY #60 tab 02/03/21 07/22/21 07/21/21 Rx tablet,extended release 24 hr albuterol sulfate 90 mcg/actuation 1 puff INHALATION QID 02/10/21 07/22/21 07/21/21 History aerosol inhaler nitroglycerin 0.4 mg sublingual 0.4 mg SUBLINGUAL Q5M PRN #25 tab 03/03/21 07/22/21 Unknown Rx tablet (Nitrostat) Allergies Allergy/AdvReac Type Severity Reaction Status Date / Time tramadol AdvReac ADR-Confusi Verified 07/22/21 06:54 on ANESTHESIA AdvReac Unknown ADR-Confusi Uncoded 07/22/21 06:54 on Current Medications Generic Name Dose Route Start Last Admin Trade Name Freq PRN Reason Stop Dose Admin Sodium Chloride 1,000 mls @ 30 mls/hr 07/22/21 06:45 07/22/21 07:06 Sodium Chloride 0.9% IV 07/23/21 06:44 30 mls/hr .Q24H MARTÍNEZ Administration PFS Anesthesia Medical History (Updated 07/05/21 @ 10:56 by Guerita Bell) Takotsubo cardiomyopathy Family History Other Stroke Denies family history of Diabetes CAD (coronary artery disease) Social History (System 07/05/21 @ 10:56 by Guerita Bell) Smoking and tobacco status: former smoker Alcohol intake: current Alcohol intake frequency: holidays/special occasions only Data Anesthesia Cardiac Studies: No Data to Display
[2021-07-22 07:50] VITALS: BP 108/59; PULSE 73; RESP 16; TEMP 36.3; O2SAT 96
[2021-07-22 08:03] VITALS: BP 107/72; PULSE 58; RESP 18; O2SAT 96
--- NOTE | 2021-07-22 12:25 | ANE.PACU2 ---
Inpatient post-anesthesia follow up: Airway intact: Yes Vital signs: Temperature 97.4 F Pulse Rate 58 Respiratory Rate 18 Blood Pressure 107/72 Pulse Oximetry 96 Oxygen Delivery Me thod Room Air Oxygen Flow Rate Fraction of Inspir ed Oxygen Hydration adequate: Yes Nausea and vomiting: No Pain level: 1 Mental status: Baseline
== END 2021-07-22 08:23 | disposition home or self-care (01) ==
PROVIDERS: PCP Nurse Practitioner; Visit Provider Surgery
PROC: 0DJD8ZZ Inspection of Lower Intestinal Tract, Via Natural or Artificial Opening Endoscopic (ICD-10-PCS; CPT 45378; principal; 2021-07-22 07:30)
DX: Z12.11 Encounter for screening for malignant neoplasm of colon (principal); Z87.891 Personal history of nicotine dependence; J45.909 Unspecified asthma, uncomplicated; I25.2 Old myocardial infarction; F41.9 Anxiety disorder, unspecified; Z79.82 Long term (current) use of aspirin
CPT/HCPCS: 45378; J2704; J7030

== ENCOUNTER 2021-08-09 09:28 | Outpatient (CLI) | payer OTHER, SELFPAY ==
--- NOTE | 2021-08-09 11:15 | USCV_ITS ---
Emiliana Bolanos Age: 51 Gender: F : 1970 Exam Date: 08/09/2021 09:56 Ordering Phys: Elidia Welsh MD ([email or web address]) Technologist: KEN [place] [facility] [place]: Takotsubo Syndrome BP: 140 / 60 HR: 156 Rhythm: Sinus Technical Quality: Suboptimal MEASUREMENTS (Male / Female) Normal Values 2D ECHO LV Diastolic Diameter PLAX 4.7 cm 4.2 - 5.9 / 3.9 - 5.3 cm LV Systolic Diameter PLAX 3.1 cm IVS Diastolic Thickness 0.7 cm 0.6 - 1.0 / 0.6 - 0.9 cm IVS Systolic Thickness 1.2 cm LVPW Diastolic Thickness 0.9 cm 0.6 - 1.0 / 0.6 - 0.9 cm LVPW Systolic Thickness 1.0 cm RV Chamber Size 3.0 cm LVOT Diameter 2.0 cm LV Ejection Fraction 2D Teich 62.5 % LV Ejection Fraction MOD 2C 43.9 % LV Ejection Fraction 2C AL 42.9 % LA Diameter 2.4 cm LA Width 3.2 cm LA Height 3.8 cm RA Width 3.3 cm RA Height 3.4 cm Aorta at Sinotubular Diameter 2.3 cm M-MODE Aortic Annulus Diameter 2.9 cm LA Ao Ratio MM 0.9 MV E Point Septal Separation 0.6 cm DOPPLER AV Peak Velocity 118.0 cm/s LVOT Peak Velocity 111.0 cm/s AV Area Cont Eq vti 2.9 cm squared AV Area Cont Eq pk 3.0 cm squared MV Area PHT 4.3 cm squared Mitral E to A Ratio 1.3 MV E' Velocity 45.5 cm/s Mitral E to MV E' Ratio 6.1 Mitral E to LV E' Lateral Ratio 5.1 Mitral E to LV E' Septal Ratio 7.6 TR Peak Velocity 225.0 cm/s TR Peak Gradient 20.3 mmHg TV Peak E Velocity 56.0 cm/s PV Peak Velocity 88.0 cm/s RV Acceleration Time 0.2 s RV Ejection Time 0.4 s RV AcT/ET 0.5 FINDINGS Left Ventricle Normal left ventricular size, systolic function and wall thickness, with no regional wall motion abnormalities. Left ventricular ejection fraction is estimated at 55-60 %. Normal diastolic function. Right Ventricle Normal right ventricular size and systolic function. RVSP could not be calculated due to incomplete tricuspid regurgitation velocity profile. Right Atrium Normal right atrial size. Right atrial pressure estimated at 3 mmHg. Left Atrium Normal left atrial size. Mitral Valve Mildly thickened mitral valve. No mitral valve stenosis. Trace mitral valve regurgitation. Aortic Valve Probably trileaflet aortic valve. No aortic valve stenosis. No aortic valve regurgitation. Tricuspid Valve Structurally normal tricuspid valve. No tricuspid valve stenosis. Trace tricuspid valve regurgitation. Pulmonic Valve Pulmonic valve not well visualized. No pulmonary valve stenosis. Trace pulmonary valve regurgitation. Pericardium No pericardial effusion. Aorta Normal-sized aortic root. Normal-sized inferior vena cava with normal respiratory variation. CONCLUSIONS 1. This is a technically difficult study. 2. Normal left ventricular size, systolic function and wall thickness, with no regional wall motion abnormalities. Left ventricular ejection fraction is estimated at 55-60 %. Normal diastolic function. 3. Normal right ventricular size and systolic function. 4. No significant valvular abnormality. 5. No prior similar studies to compare. Elidia Welsh MD (Electronically Signed) Final Date: 11 August 2021 16:28 S
== END 2021-08-09 09:29 | disposition home or self-care (01) ==
LOC: RAD 09:29
PROVIDERS: PCP Nurse Practitioner; Visit Provider Internal Medicine Cardiovascular Disease
DX: I51.81 Takotsubo syndrome (principal); I50.9 Heart failure, unspecified
CPT/HCPCS: 93306

== ENCOUNTER → 2021-10-27 10:59 | Outpatient (BNVA) | payer OTHER, SELFPAY | PROVIDERS: PCP Nurse Practitioner; Visit Provider Internal Medicine Cardiovascular Disease | DX: I51.81 Takotsubo syndrome (principal); I51.9 Heart disease, unspecified; E78.5 Hyperlipidemia, unspecified; G43.909 Migraine, unspecified, not intractable, without status migrainosus | CPT/HCPCS: 99214 ==

== ENCOUNTER 2022-08-11 08:33 | Outpatient (CLI) | payer OTHER, SELFPAY ==
--- NOTE | 2022-08-11 08:47 | MM_ITS ---
WS: [id number] BILATERAL SCREENING DIGITAL TOMOSYNTHESIS MAMMOGRAM WITH CAD HISTORY: SCREENING COMPARISON: 01/25/2021 and 06/15/2017 Bilateral CC and MLO views with tomosynthesis and synthetic mammography submitted. Computer aided det ection analyzed. Breast composition: The breasts are almost entirely fatty. No suspicious masses, microcalcifications or architectural distortion. Benign coarse calcification 12:00 RIGHT breast. MM/[place] [id number] IMPRESSION: BI-RADS: 2-Benign FOLLOW UP: 1 Year Follow-up
== END 2022-08-11 08:34 | disposition home or self-care (01) ==
LOC: RAD 08:34
PROVIDERS: PCP Nurse Practitioner; Visit Provider Nurse Practitioner
DX: Z12.31 Encounter for screening mammogram for malignant neoplasm of breast (principal)
CPT/HCPCS: 77063; 77067

== ENCOUNTER 2022-09-26 08:41 | Observation (INO) | payer OTHER, SELFPAY ==
[2022-09-26] VITALS (160 sets, daily range): BP systolic 107–147; BP diastolic 60–92; PULSE 39–81; RESP 3–30; TEMP 36.5–36.8; O2SAT 94–100; BMI 30.7
--- NOTE | 2022-09-26 08:53 | XRR_ITS ---
PROCEDURE INFORMATION: Exam: XR Chest Exam date and time: 09/26/2022 9:01 AM Age: 52 years old Clinical indication: Pain; Chest pressure; Additional info: Chest pain TECHNIQUE: Imaging protocol: Radiologic exam of the chest. Views: 1 view. COMPARISON: CR XR shoulder RT min 2V* [id number] 08/19/2020 11:12 AM FINDINGS: Lungs: The lung parenchyma is clear. Pleural spaces: No pneumothorax. No pleural effusion. Heart/Mediastinum: The cardiomediastinal silhouette is within normal limits. Bones/joints: Unremarkable. XR/XR chest 1V portable [id number] IMPRESSION: No acute cardiopulmonary abnormality.
--- NOTE | 2022-09-26 08:53 | ECG_ITS ---
[facility] Test Date: 2022-09-26 Pat Name: Emiliana Shea Department: Room: Gender: Female Certified Nurse Practitioner: : 1970 Requested By: Mukesh Pryor Order Number: [id number] Jackson MD: Nils Garcia M.D. Measurements Intervals [place] Rate: 45 P: 61 CT: 198 QRS: 66 QRSD: 83 T: 70 QT: 460 QTc: 400 Interpretive Statements SINUS BRADYCARDIA NONSPECIFIC T-WAVE ABNORMALITY No previous ECG available for comparison Electronically Signed On 09-26-2022 16:29:09 CDT by Nils Garcia M.D. [id number]
--- NOTE | 2022-09-26 09:03 | ED_ITS ---
HPI - Chest Pain General: Chief Complaint: Chest Pain Stated Complaint: CHEST PAIN Time Seen by Provider: 09/26/22 08:52 Source: patient Mode of arrival: ambulatory History of Present Illness: 52-year-old female who presents emergency room with complaint an episode of chest pain this morning. Patient reports chest pain began around 745 this morning radiating to her back and into her neck. She took a sublingual nitro which resolved her pain she has not had any pain since on arrival here she is currently pain-free. She had also taken 324 of aspirin. She previously had an angiogram that showed Takotsubo. She has never had any stenting. No further evaluation. She is on clopidogrel and metoprolol. MD complaint: chest pain Onset (ago): hour(s) Timing of current episode: episodic Onset: awoke with symptoms Pain location: substernal Pain radiation: back and neck Severity: moderate Quality: tightness, aching and heaviness Relieving factors: nitroglycerin Exacerbating factors: nothing Associated symptoms: Deny abdominal pain, diaphoresis, dyspnea, fever(s), leg edema, nausea, palpitations, sense of impending doom, syncope or vomiting Treatment prior to arrival: aspirin and nitroglycerin Review of Systems Const: Denies: fever(s), chills, fatigue, malaise or diaphoresis ENMT: Denies: throat pain, ear or mastoid pain, nasal discharge or nasal congestion Card: Reports: chest pain; Denies: palpitations, irregular heart rhythm, edema, swelling of feet/ankles or syncope Resp: Denies: dyspnea, productive cough or non-productive cough GI: Denies: abdominal pain, nausea or vomiting : Denies: flank pain, difficulty voiding, dysuria, urinary frequency or u rinary urgency Skin/Breast: Denies: rash or pruritus [facility] ED PFSH: Medical History (Updated 09/26/22 @ 11:39 by Mukesh Wilcox DO) Arthritis of right acromioclavicular joint Dyslipidemia History of coronary angiogram 02/2021 no obstructive disease Migraine PTSD (post-traumatic stress disorder) Takotsubo cardiomyopathy 02/2021 EF as low as 25 %, recovered to 55-60% on Echo 08/27 Surgical History History of colonoscopy 2021 normal Family History Other Stroke Denies family history of Diabetes CAD (coronary artery disease) Social History Smoking and tobacco status: former smoker Alcohol intake: current Alcohol intake frequency: holidays/special occasions only Physical Exam Const: GENERAL APPEARANCE: cooperative and comfortable O RIENTATION/CONSCIOUSNESS: Yes awake, Yes oriented to person, Yes oriented to place and Yes oriented to time HENMT: COMMON NORMALS: normocephalic, atraumatic and hearing grossly normal bilaterally HEAD & SCALP: normocephalic and atraumatic Resp: COMMON NORMALS: normal respiratory effort, No retractions, No use of accessory muscles and clear to auscultation bilaterally AUSCULTATION: clear to auscultation bilaterally Cardio: COMMON NORMALS: regular rate, regular rhythm and No murmurs present (Cardio) RATE: regular rate RHYTHM: regular rhythm GI: COMMON NORMALS: Soft to palpation and No hepatosplenomegaly present AUSCULTATION: Yes normoactive bowel sounds PALPATION: Yes Soft to palpation, No Tenderness to palpation present (GI), No Guarding due to palpation present (GI) and Yes No hepatosplenomegaly present Extremity: COMMON NORMALS: normal to inspection, capillary refill normal, no clubbing, cyanosis or edema, no calf tenderness and no pedal edema Neuro: SENSORIUM/ORIENTATION: Yes oriented to person, Yes oriented to place and Yes oriented to time Skin: COMMON NORMALS: no rashes or lesions noted GENERAL SKIN EXAM: no rashes or lesions noted Course Vital Signs: Vital signs: Vital Signs Temperature 97.7 F 09/26/22 08:57 Pulse Rate 42 L 09/26/22 10:50 Respiratory Rate 14 09/26/22 10:50 Blood Pressure 119/73 09/26/22 10:50 Pulse Oximetry 98 09/26/22 10:50 Oxygen Delivery Me thod Room Air 09/26/22 10:45 MDM - Chest Pain Medical Decision Making Chest pain resolved by the time patient arrived did not recur first troponin is in excess of 300 as a positive delta of 327 on her second troponin she was started on heparin and topical nitro she continues to be pain-free no acute EKG changes will admit to hospitalist consult cardiology Medical Records I reviewed the patient's medical records. Lab Data I reviewed the patient's lab results. 09/26/22 08:05 09/26/22 08:05 Radiology Impressions Chest X-Ray 09/26/22 08:53 IMPRESSION: No acute cardiopulmonary abnormality. Laboratory Results WBC 10.1 10^3/uL (4.0-10.0) H 09/26/22 08:05 RBC 4.31 10^6/uL (4.1-5.3) 09/26/22 08:05 Hgb 13.1 g/dL (11.5-15.3) 09/26/22 08:05 Hct 39.1 % (37.0-47.0) 09/26/22 08:05 MCV 90.7 fl (81-99) 09/26/22 08:05 MCH 30.4 pg (28.0-34.0) 09/26/22 08:05 MCHC 33.5 g/dL (30.0-36.0) 09/26/22 08:05 RDW 13.1 % (12.1-15.1) 09/26/22 08:05 Plt Count 299 10^3/cmm (130-400) 09/26/22 08:05 MPV 11.4 fL (7.4-10.4) H 09/26/22 08:05 Neut % (Auto) 47.8 % 09/26/22 08:05 Lymph % (Auto) 39.8 % 09/26/22 08:05 [place] % (Auto) 7.0 % 09/26/22 08:05 Eos % (Auto) 4.5 % 09/26/22 08:05 Baso % (Auto) 0.7 % 09/26/22 08:05 Neut # (Auto) 4.83 10^3/uL (1.8-7.7) 09/26/22 08:05 Lymph # (Auto) 4.0 10^3/uL (0.8-4.8) 09/26/22 08:05 [place] # (Auto) 0.7 10^3/uL (0.2-0.9) 09/26/22 08:05 Eos # (Auto) 0.5 10^3/uL (0.0-0.8) 09/26/22 08:05 Baso # (Auto) 0.1 10^3/uL (0.0-0.1) 09/26/22 08:05 Nucleated RBC % (auto) 0 % 09/26/22 08:05 Nucleated RBCs # 0.0 /100WBC 09/26/22 08:05 APTT 27.6 SECONDS (23.9-36.7) 09/26/22 08:05 Sodium 142 mmol/L (136-145) 09/26/22 08:05 Potassium 3.5 mmol/L (3.5-5.1) 09/26/22 08:05 Chloride 105 mmol/L (98-107) 09/26/22 08:05 Carbon Dioxide 23 mmol/L (22-29) 09/26/22 08:05 Anion Gap 17.5 (5-19) 09/26/22 08:05 BUN 13 mg/dL (6-20) 09/26/22 08:05 Creatinine 0.7 mg/dL (0.5-0.9) 09/26/22 08:05 GFR Calculation 87.2 mL/min (90-130) L 09/26/22 08:05 Glucose 103 mg/dL (65-115) 09/26/22 08:05 Calculated Osmolality 294 mOsm/kg (285-295) 09/26/22 08:05 Calcium 8.8 mg/dL (8.5-10.5) 09/26/22 08:05 Total Bilirubin 0.4 mg/dL (0.15-1.2) 09/26/22 08:05 AST 24 U/L (0-32) 09/26/22 08:05 ALT 12 U/L (0-33) 09/26/22 08:05 Alkaline Phosphatase 60 U/L (35-105) 09/26/22 08:05 Troponin T Baseline 327 ng/L (0-10) H* 09/26/22 08:05 Troponin T 120 Minute 649.9 ng/L (0-10) H 09/26/22 10:22 Delta Troponin T 322.9 ABS# (0-10) H* 09/26/22 10:22 Total Protein 6.7 g/dL (6.6-8.7) 09/26/22 08:05 Albumin 4.2 g/dL (3.5-5.2) 09/26/22 08:05 Globulin 2.5 g/dL (1.3-4.6) 09/26/22 08:05 Discharge Plan Discharge Patient Disposition: Admitted As Inpatient Clinical Impression: Non-ST elevation CA (NSTEMI) Condition: Stable Prescriptions: No Action clopidogrel 75 mg tablet 75 mg PO DAILY Qty: 90 3RF lisinopril 2.5 mg tablet 2.5 mg PO DAILY Qty: 90 3RF metoprolol succinate 25 mg tablet extended release 24 hr 12.5 mg PO DAILY Qty: 45 3RF albuterol sulfate 90 mcg/actuation HFA aerosol inhaler 1 puff inhalation QID PRN (Reason: Shortness Of Breath) nitroglycerin [Nitrostat] 0.4 mg tablet, sublingual 0.4 mg sublingual Q5M PRN (Reason: chest pain) Qty: 25 3RF Rx Instructions: do not exceed 3 doses per episode Referrals: Codi Harrell FNP [Primary Care Provider] - Patient Instructions: Opioid Safety, Pain Management Coding Level of Care Code ED [employer] for [employer]ga Sorto
[2022-09-26 10:16] LABS: Basophils # 0.1 10^3/uL (0.0-0.1); Basophils % 0.7 %; Eosinophils # 0.5 10^3/uL (0.0-0.8); Eosinophils % 4.5 %; Hematocrit 39.1 % (37.0-47.0); Hemoglobin 13.1 g/dL (11.5-15.3); Lymphocytes % 39.8 %; Mean Corpuscular HGB Conc 33.5 g/dL (30.0-36.0); Mean Corpuscular Hemoglobin 30.4 pg (28.0-34.0); Mean Corpuscular Volume 90.7 fl (81-99); Mean Platelet Volume 11.4 fL (7.4-10.4); Monocytes # 0.7 10^3/uL (0.2-0.9); Neutrophils # 4.83 10^3/uL (1.8-7.7); Neutrophils % 47.8 %; Nucleated Red Blood Cells % 0 %; Platelet Count 299 10^3/cmm (130-400); Red Blood Count 4.31 10^6/uL (4.1-5.3); Red Cell Distribution Width 13.1 % (12.1-15.1); White Blood Count 10.1 10^3/uL (4.0-10.0)
[2022-09-26 10:35] LABS: Alanine Aminotransferase 12 U/L (0-33); Albumin Level 4.2 g/dL (3.5-5.2); Alkaline Phosphatase 60 U/L (35-105); Anion Gap 17.5 (5-19); Aspartate Amino Transferase 24 U/L (0-32); Blood Urea Nitrogen 13 mg/dL (6-20); Calcium 8.8 mg/dL (8.5-10.5); Carbon Dioxide 23 mmol/L (22-29); Chloride 105 mmol/L (98-107); Globulin 2.5 g/dL (1.3-4.6); Glomerular Filtration Rate 87.2 mL/min (90-130); Glucose 103 mg/dL (65-115); Osmolality Calculated 294 mOsm/kg (285-295); Potassium 3.5 mmol/L (3.5-5.1); Sodium 142 mmol/L (136-145); Total Bilirubin 0.4 mg/dL (0.15-1.2); Total Protein 6.7 g/dL (6.6-8.7)
[2022-09-26 10:41] LABS: Troponin(5th) Baseline 327 ng/L (0-10)
[2022-09-26 10:56] LABS: Troponin 5 2HR 649.9 ng/L (0-10); Troponin 5 2HR Delta 322.9 ABS# (0-10)
[2022-09-26 10:57] LABS: Partial Thromboplastin Time 27.6 SECONDS (23.9-36.7)
--- NOTE | 2022-09-26 11:00 | ECG_ITS ---
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 Measurements Intervals [place] Rate: 42 P: 56 FL: 198 QRS: 14 QRSD: 88 T: 122 QT: 477 QTc: 402 Interpretive Statements SINUS BRADYCARDIA POSSIBLE RIGHT VENTRICULAR CONDUCTION DELAY [RSR (QR) IN V1/V2] ABNORMAL QRS-T ANGLE [QRS-T AXIS DIFFERENCE > 60] Compared to ECG 09/26/2022 09:00:57 T-wave abnormality no longer present Electronically Signed On 09-26-2022 16:35:24 CDT by Nils Garcia M.D. [email or web address]
--- NOTE | 2022-09-26 11:32 | P.HP_ITS ---
Providers/Chief Complaint Admitting Physician: Desi Mcallister MD Primary Care Provider: CHITRA Harrell Chief Complaint: CHEST PAIN History of Present Illness Emiliana Shea is a 52 year old female who presented to the emergency room with chief complaint of not feeling right. Yesterday she was excessively tired and went to bed early. She had worked outside using a chainsaw on a pole and attributed her exhaustion to this. She had some mild left shoulder, left upper back discomfort. She slept through the night and it was light out when she woke up. That is not normal for her. Her mind did not seem as clear as usual and she found it difficult to get her day going. She eventually got up and went into the bathroom. She started to notice that she had discomfort in her abdomen. She felt like she might have some loose stools coming and so sat on the toilet. She then became nauseated and diaphoretic. She did not in fact have any destinee GI symptoms but describes sweating like crazy . At the same time the discomfort in her left shoulder/left upper back area moved into her neck. She describes this as a muscle ache. Although not as severe, her symptoms were identical to when she experienced Takotsubo back in 2020. She has a lot of anxiety at baseline when it comes to leaving her familiar surroundings. She has a history of PTSD. She ended up calling a neighbor to help her decide what to do. The neighbor encouraged 911 to be called. She did take a nitroglycerin and by the time EMS arrived, her symptoms had nearly completely abated. Initial EKG showed sinus bradycardia at 45 bpm with nonspecific T wave changes. Initial troponin was 327 with a 2-hour troponin at 649 for a 2-hour delta of 322. She denies any other episodes of chest discomfort. Yesterday when she was using the chainsaw on a pole she had left shoulder/left upper back discomfort but denied chest pain. She denies any orthopnea, lower extremity edema, shortness of breath. She does have a history of asthma. She is a former smoker. She had a cardiac catheterization in 2020 that showed no obstructive disease. Ejection fraction at the time was 25%. Echocardiogram from August of last year showed recovery at ejection fraction 55 to 60%. She has continued on Plavix, low-dose SHARDA inhibitor and low-dose beta-blockade since that time. She reports having lost weight intentionally, exercising, trying to eat better. Her cholesterol has been okay. She no longer takes statin therapy due to issues with restless legs. She is followed at [facility] [place] [facility] for regular medical care, seeing Codi Harrell. She currently feels good without any any of the concerning symptoms that she experienced earlier today. During the course of my evaluation and discussion with her, I did note bradycardia into the 30s a few times. Heart rate has generally been mid 40s to mid 50s. Patient reports her resting heart rate is usually around 60, upper 50s. Review of Systems General: Reports: Other (ROS as per HPI or as otherwise noted here) GI: Denies: hematochezia : Denies: hematuria Neuro: Denies: headache(s) (History of migraines), numbness in extremities or weakness in extremities Psych: Reports: anxiety and other ( Life has never been so good as it has been recently) Stewart/Lymph: Denies: easy bruising or easy bleeding Medications/Allergies Home Medications Medication Instructions Recorded Confirmed Last Taken Type nitroglycerin 0.4 mg sublingual 0.4 mg sublingual Q5M PRN chest 03/03/21 09/26/22 Unknown Rx tablet (Nitrostat) pain #25 tabs albuterol sulfate 90 mcg/actuation 1 puff inhalation QID PRN 10/27/21 09/26/22 Unknown History aerosol inhaler Shortness Of Breath clopidogrel 75 mg tablet 75 mg PO DAILY #90 tabs 10/27/21 09/26/22 09/25/22 Rx lisinopril 2.5 mg tablet 2.5 mg PO DAILY #90 tabs 10/27/21 09/26/22 09/25/22 Rx metoprolol succinate 25 mg 12.5 mg PO DAILY #45 tabs 10/27/21 09/26/22 09/25/22 Rx tablet,extended release 24 hr Allergies Allergy/AdvReac Type Severity Reaction Status Date / Time tramadol AdvReac ADR-Confusi Verified 08/04/21 09:35 on ANESTHESIA AdvReac Unknown ADR-Confusi Uncoded 08/04/21 09:35 on PFSH Acute PFSH: Medical History (Updated 09/26/22 @ 13:52 by Desi Mcallister MD) Anxiety Arthritis of right acromioclavicular joint Asthma Dyslipidemia 0 History of coronary angiogram 02/2021 no obstructive disease Migraine PTSD (post-traumatic stress disorder) Takotsubo cardiomyopathy 02/2021 EF as low as 25 %, recovered to 55-60% on Echo 08/27 Surgical History (Updated 09/26/22 @ 12:25 by Desi Mcallister MD) History of colonoscopy 2021 normal S/P left rotator cuff repair Family History (Updated 09/26/22 @ 12:21 by Desi Mcallister MD) Mother Stroke, Onset Age: 55 Peripheral arterial disease Peripheral vascular disease Family/Other Brain malignancy Stepfather Denies family history of Diabetes CAD (coronary artery disease) Social History (Updated 09/26/22 @ 12:22 by Desi Mcallister MD) Smoking and tobacco status: former smoker Alcohol intake: current Alcohol intake frequency: holidays/special occasions only Substance/Drug Use: never Marital status: service: Yes branch: [employer] Female Reproductive History: Other female reproductive history: Last menstrual period several years ago in 2022 Vitals/I&O/Wt Last Vital Signs Temp 97.7 F 09/26/22 08:57 Pulse 42 L 09/26/22 10:50 Resp 14 09/26/22 10:50 BP 119/73 09/26/22 10:50 Pulse Ox 98 09/26/22 10:50 O2 Del Method Room Air 09/26/22 10:45 Weight last 48 hrs Weight 86.183 kg Physical Exam Narrative: Patient is awake and alert, able to provide history. Normocephalic. Pupils are equal reactive. Extraocular movements are intact. Nasopharynx is clear. Oropharynx is clear with moist mucous membranes. Lungs are clear to auscultation without any rales rhonchi or wheezes noted cardiovascular exam reveals a bradycardic but regular rhythm without any murmurs gallops or rubs. Pulses are equal x4. Abdomen is soft, nontender. Extremities no pitting edema or calf tenderness. Strength is equal x4. Face symmetric, speech clear. Brisk capillary refill. Data 09/26/22 08:05 09/26/22 08:05 Other Labs: Radiology Impressions Chest X-Ray 09/26/22 08:53 IMPRESSION: No acute cardiopulmonary abnormality. Laboratory Results WBC 10.1 10^3/uL (4.0-10.0) H 09/26/22 08:05 RBC 4.31 10^6/uL (4.1-5.3) 09/26/22 08:05 Hgb 13.1 g/dL (11.5-15.3) 09/26/22 08:05 Hct 39.1 % (37.0-47.0) 09/26/22 08:05 MCV 90.7 fl (81-99) 09/26/22 08:05 MCH 30.4 pg (28.0-34.0) 09/26/22 08:05 MCHC 33.5 g/dL (30.0-36.0) 09/26/22 08:05 RDW 13.1 % (12.1-15.1) 09/26/22 08:05 Plt Count 299 10^3/cmm (130-400) 09/26/22 08:05 MPV 11.4 fL (7.4-10.4) H 09/26/22 08:05 Neut % (Auto) 47.8 % 09/26/22 08:05 Lymph % (Auto) 39.8 % 09/26/22 08:05 [place] % (Auto) 7.0 % 09/26/22 08:05 Eos % (Auto) 4.5 % 09/26/22 08:05 Baso % (Auto) 0.7 % 09/26/22 08:05 Neut # (Auto) 4.83 10^3/uL (1.8-7.7) 09/26/22 08:05 Lymph # (Auto) 4.0 10^3/uL (0.8-4.8) 09/26/22 08:05 [place] # (Auto) 0.7 10^3/uL (0.2-0.9) 09/26/22 08:05 Eos # (Auto) 0.5 10^3/uL (0.0-0.8) 09/26/22 08:05 Baso # (Auto) 0.1 10^3/uL (0.0-0.1) 09/26/22 08:05 Nucleated RBC % (auto) 0 % 09/26/22 08:05 Nucleated RBCs # 0.0 /100WBC 09/26/22 08:05 APTT 27.6 SECONDS (23.9-36.7) 09/26/22 08:05 Sodium 142 mmol/L (136-145) 09/26/22 08:05 Potassium 3.5 mmol/L (3.5-5.1) 09/26/22 08:05 Chloride 105 mmol/L (98-107) 09/26/22 08:05 Carbon Dioxide 23 mmol/L (22-29) 09/26/22 08:05 Anion Gap 17.5 (5-19) 09/26/22 08:05 BUN 13 mg/dL (6-20) 09/26/22 08:05 Creatinine 0.7 mg/dL (0.5-0.9) 09/26/22 08:05 GFR Calculation 87.2 mL/min (90-130) L 09/26/22 08:05 Glucose 103 mg/dL (65-115) 09/26/22 08:05 Calculated Osmolality 294 mOsm/kg (285-295) 09/26/22 08:05 Calcium 8.8 mg/dL (8.5-10.5) 09/26/22 08:05 Total Bilirubin 0.4 mg/dL (0.15-1.2) 09/26/22 08:05 AST 24 U/L (0-32) 09/26/22 08:05 ALT 12 U/L (0-33) 09/26/22 08:05 Alkaline Phosphatase 60 U/L (35-105) 09/26/22 08:05 Troponin T Baseline 327 ng/L (0-10) H* 09/26/22 08:05 Troponin T 120 Minute 649.9 ng/L (0-10) H 09/26/22 10:22 Delta Troponin T 322.9 ABS# (0-10) H* 09/26/22 10:22 Total Protein 6.7 g/dL (6.6-8.7) 09/26/22 08:05 Albumin 4.2 g/dL (3.5-5.2) 09/26/22 08:05 Globulin 2.5 g/dL (1.3-4.6) 09/26/22 08:05 A&P Assessment and plan (1) Non-ST elevation OR (NSTEMI): With significant 2-hour delta greater than 300. Arteriogram in 2020 did not show any evidence of obstructive coronary disease when she presented similarly and was found to have Takotsubo. With nitroglycerin symptoms have resolved. Cardiology consultation Echocardiogram ordered Heparin drip has been initiated, follow protocol for adjustments We will continue home Plavix Check lipid panel and A1c for risk stratification (2) Sinus bradycardia: In a patient on chronic beta-blockade. Resting heart rate is usually upper 50s, around 60. Heart rate has been 30s to 40s in the emergency room today. Last dose of metoprolol was on 09/25/2022. She did not take it today. Unclear if a contributing factor to #1 or a result. Telemetry monitoring Beta-fernanod currently held Will not continue Nitropaste secondary to bradycardia though do need to keep in mind that her symptoms revolved with nitroglycerin at home Check TSH, magnesium (3) Takotsubo cardiomyopathy: Identified in February 2021 with ejection fraction as low as 25%. Symptoms resolved and last echocardiogram in August 2021 showed EF at 55 to 60%. Has been maintained on low-dose SHARDA inhibitor, beta-blockade and Plavix due to this hist ory. She had previously been on statin therapy as well but this was stopped due to restless legs and improvement in diet and exercise/lifestyle modifications. Continuing home Plavix Home beta-fernando is currently held due to bradycardia Due to low normal blood pressures, presently holding low-dose SHARDA inhibitor but anticipate resumption at some point (4) Dyslipidemia: Reports recent lipid panel showed total cholesterol of 106. No longer on atorvastatin therapy due to side effects that she experienced. Check lipid panel (5) Asthma: Chronic, not acute. Has as needed albuterol if needed at home. As needed albuterol (6) Anxiety: Chronic issue related to PTSD and not liking being outside of her comfortable/fa miliar surroundings. Has done well maintaining with exercise, self talk and reaching out to others. Discussed with patient how good it was that she listened to her body today as the symptoms she was experiencing were more than anxiety. Reiterated with her that when she has similar symptoms or other symptoms that are concerning, that she should seek out appropriate medical evaluation to rule out serious problems. Let her know it is okay if she were to come in and nothing identifiable was fo und. Supportive care Plan Observation admission for now CSU Low rate of IV fluids PPI for GI prophylaxis Heparin drip will provide sufficient VTE prophylaxis currently; if transitions to inpatient status and heparin drip is stopped will need alternative DVT prophylaxis initiated Supportive care otherwise Findings, concerns and plans were discussed with patient and she was given an opportunity to ask questions Anticipate discharge home with outpatient follow-up, possibly some changes to medications. She already has a cardiology appointment scheduled on October 26 at [address] Welsh. It was her annual follow-up due to prior history of T akotsubo Full code Attestations Medical Necessity Statement*: Currently anticipate a stay less than two midnights in this patient found to have a significant 2-hour delta troponin whose presenting symptoms are currently resolved, beyond bradycardia. She had cardiac catheterization in 2020 that did not show any obstructive coronary artery disease. She has a known history of Takotsubo. Depending on clinical course she may require transition to inpatient status. and High Time for a total of 75 minutes, includes reviewing past or interval history, examining/interviewing patient, placing orders, counseling patient/family/other support, discussing plan of care with staff, communicating with other healthcare providers and documenting encounter Diagnoses Non-ST elevation OR (NSTEMI) I21.4 Sinus bradycardia R00.1 Takotsubo cardiomyopathy I51.81 Dyslipidemia E78.5 Asthma J45.909 Anxiety F41.9
[2022-09-26] MEDS: nitroglycerin 1 gm/inch oint Pkt 1 INCH TOPICAL (11:48)
[2022-09-26] MEDS: heparin 5,000 unit/mL INJ 1 mL IV (12:16)
[2022-09-26] MEDS: heparin drip 25,000 UNIT/500 ML PREMIX 24 UNIT IV (12:18)
--- NOTE | 2022-09-26 12:33 | P.CONIM_ITS ---
Providers/Reason For Consult Consulting Physician/Specialty*: SAEED Earl MD/cardiology Reason for Consult*: Patient with chest pain/elevated troponin the Requesting Physician: Dr. Hurt Attending Physician: Dr Feliz Primary Care Provider: CHITRA Harrell History of Present Illness History of Present Illness Emiliana Shea is a 52 year old female with a history of Takotsubo syndrome, dyslipidemia and PTSD, is present with complaints of generalized uneasiness, stomach discomfort, profuse sweating and pain/discomfort in the upper back. She was found to have elevated troponin T. Cardiology consult is requested for further cardiac evaluation recommendations. This patient apparently has been in her baseline state of health up until yesterday evening when she started feeling some uneasiness in her body and a sicky feeling' in the stomach. She thought that she might be developing some food poisoning or so. She did not have any diarrhea or vomiting. She went to bed with these symptoms. This morning as she woke up, she continued to have the sicky feeling in the stomach. She also had some nausea and felt like going to have diarrhea. While she was sitting in the commode, she started having a prof use sweating. This was followed by pain and discomfort in the upper back and in her shoulders. She took a total of 2 sublingual nitro which gave her some relief of the symptoms. However the the sicky feeling persisted. For this reason, as per her neighbor's advice, she called the ambulance and was brought to the emergency room. In the ambulance, she was given 4 baby aspirin. By the time she reached the emergency room, most of the symptoms have subsided. Her initial troponin T was in the 300 range. She had a 2-hour delta of 322 and a 6- hour delta of 186. Currently at the time of my examination, patient is pain-free. 2 years ago, patient was admitted to this hospital with complaints of chest pain and sweating. According the patient, she was under tremendous stress at that time losing both parents and some other situations. And her symptoms also were much worse. However with the current episode, she noted feeling reason to be stressed out. Avoiding her, the life has been good. She was about doing some work with a chainsaw yesterday and did not feel stressed out at all. But she was feeling tired towards the evening. She denies any unusual shortness of breath. No fever, chills or cough. Review of Systems Narrative: CONSTITUTIONAL: No fever or chills. EYES: No blurring of vision or other visual disturbances lately. ENT: No hoarseness of voice, auditory disturbances or sore throat. CARDIOVASCULAR: As mentioned above. RESPIRATORY: No significant cough. GASTROINTESTINAL: As mentioned above GENITOURINARY: No dysuria or hematuria. INTEGUMENTARY: No skin rashes or history of skin cancer. NEURO: No transient ischemic attacks or amaurosis. PSYCHIATRIC: History of PTSD HEMATOLOGIC: No bleeding disorders or significant anemia. ENDOCRINE: No history of polyuria or polydipsia. MUSCULOSKELETAL: No recent joint pain or swelling. ALLERGY/IMMUNOLOGY: As mentioned above. Medications/Allergies Home Medications Medication Instructions Recorded Confirmed Last Taken Type nitroglycerin 0.4 mg sublingual 0.4 mg sublingual Q5M PRN chest 03/03/21 09/26/22 Unknown Rx tablet (Nitrostat) pain #25 tabs albuterol sulfate 90 mcg/actuation 1 puff inhalation QID PRN 10/27/21 09/26/22 Unknown History aerosol inhaler Shortness Of Breath clopidogrel 75 mg tablet 75 mg PO DAILY #90 tabs 10/27/21 09/26/22 09/25/22 Rx lisinopril 2.5 mg tablet 2.5 mg PO DAILY #90 tabs 10/27/21 09/26/22 09/25/22 Rx metoprolol succinate 25 mg 12.5 mg PO DAILY #45 tabs 10/27/21 09/26/22 09/25/22 Rx tablet,extended release 24 hr Allergies Allergy/AdvReac Type Severity Reaction Status Date / Time tramadol AdvReac ADR-Confusi Verified 08/04/21 09:35 on ANESTHESIA AdvReac Unknown ADR-Confusi Uncoded 08/04/21 09:35 on Current Medications Generic Name Dose Route Start Last Admin Trade Name Freq PRN Reason Stop Dose Admin Heparin Sodium (Porcine) 0 unit 09/26/22 10:45 09/26/22 12:16 Heparin 5,000 Unit/Ml Inj 1 Ml IV 4,300 unit PRN PRN Administration Heparin weight-base protocol Protocol Heparin Sodium/Sodium Chloride 25,000 unit in 500 mls @ 0 mls/hr 09/26/22 10:45 09/26/22 12:18 Heparin Drip IV 13.92 unit/kg/hr .Q0M MARTÍNEZ 24 mls/hr Administration Protocol Per Protocol PFSH Acute PFSH: Medical History Anxiety Arthritis of right acromioclavicular joint Asthma Dyslipidemia 0 History of coronary angiogram 02/2021 no obstructive disease Migraine PTSD (post-traumatic stress disorder) Takotsubo cardiomyopathy 02/2021 EF as low as 25 %, recovered to 55-60% on Echo 08/27 Surgical History History of colonoscopy 2021 normal S/P left rotator cuff repair Family History Mother Stroke, Onset Age: 55 Peripheral arterial disease Peripheral vascular disease Family/Other Brain malignancy Stepfather Denies family history of Diabetes CAD (coronary artery disease) Social History Smoking and tobacco status: former smoker Alcohol intake: current Alcohol intake frequency: holidays/special occasions only Substance/Drug Use: never Marital status: service: Yes branch: [employer] Vitals/I&O/Wt Last Vital Signs Temp 97.7 F 09/26/22 08:57 Pulse 52 L 09/26/22 11:48 Resp 14 09/26/22 10:50 BP 137/75 09/26/22 11:48 Pulse Ox 98 09/26/22 10:50 O2 Del Method Room Air 09/26/22 10:45 Weight last 48 hrs Weight 190 lb Physical Exam Narrative: GENERAL: The patient is alert and oriented times three. Not in any acute distress. [] HEENT: No significant pallor, icterus or lymphadenopathy.Oral cavity: There are no mucous membrane lesions. NECK: Trachea appears to be central. No masses noted. No JVD or thyromegaly appreciated. RESPIRATORY: Chest is symmetrical. No intercostals muscle retraction or any accessory muscle activation. There is no chest wall tenderness. Breath sounds are heard bilaterally. No rales or rhonchi heard. No evidence of any consol idation. [] BREASTS: Deferred. [] HEART: The heart sounds are normal. No S3 or S4. No significant murmurs. No pericardial rub ABDOMEN: No vessel pulsations or distention. No tenderness. No organomegaly appreciated. Bowel sounds are normally heard. : Deferred. RECTAL: Deferred. LYMPHATIC: No lymphadenopathy noted in the neck. EXTREMITIES: No edema or cyanosis. No clubbing. MUSCULOSKELETAL: No acute joint deformities or swelling SKIN: There are no significant rashes or ecchymosis NEUROPSYCHIATRIC: The patient is alert and oriented x3. Appears to be in a good mood. No tremors or rigidity noted. Data 09/26/22 08:05 09/26/22 08:05 Other Labs: Laboratory Last Values WBC 10.1 10^3/uL (4.0-10.0) H 09/26/22 08:05 RBC 4.31 10^6/uL (4.1-5.3) 09/26/22 08:05 Hgb 13.1 g/dL (11.5-15.3) 09/26/22 08:05 Hct 39.1 % (37.0-47.0) 09/26/22 08:05 MCV 90.7 fl (81-99) 09/26/22 08:05 MCH 30.4 pg (28.0-34.0) 09/26/22 08:05 MCHC 33.5 g/dL (30.0-36.0) 09/26/22 08:05 RDW 13.1 % (12.1-15.1) 09/26/22 08:05 Plt Count 299 10^3/cmm (130-400) 09/26/22 08:05 MPV 11.4 fL (7.4-10.4) H 09/26/22 08:05 Neut % (Auto) 47.8 % 09/26/22 08:05 Lymph % (Auto) 39.8 % 09/26/22 08:05 [place] % (Auto) 7.0 % 09/26/22 08:05 Eos % (Auto) 4.5 % 09/26/22 08:05 Baso % (Auto) 0.7 % 09/26/22 08:05 Neut # (Auto) 4.83 10^3/uL (1.8-7.7) 09/26/22 08:05 Lymph # (Auto) 4.0 10^3/uL (0.8-4.8) 09/26/22 08:05 [place] # (Auto) 0.7 10^3/uL (0.2-0.9) 09/26/22 08:05 Eos # (Auto) 0.5 10^3/uL (0.0-0.8) 09/26/22 08:05 Baso # (Auto) 0.1 10^3/uL (0.0-0.1) 09/26/22 08:05 Nucleated RBC % (auto) 0 % 09/26/22 08:05 Nucleated RBCs # 0.0 /100WBC 09/26/22 08:05 APTT 27.6 SECONDS (23.9-36.7) 09/26/22 08:05 Sodium 142 mmol/L (136-145) 09/26/22 08:05 Potassium 3.5 mmol/L (3.5-5.1) 09/26/22 08:05 Chloride 105 mmol/L (98-107) 09/26/22 08:05 Carbon Dioxide 23 mmol/L (22-29) 09/26/22 08:05 Anion Gap 17.5 (5-19) 09/26/22 08:05 BUN 13 mg/dL (6-20) 09/26/22 08:05 Creatinine 0.7 mg/dL (0.5-0.9) 09/26/22 08:05 GFR Calculation 87.2 mL/min (90-130) L 09/26/22 08:05 Glucose 103 mg/dL (65-115) 09/26/22 08:05 Calculated Osmolality 294 mOsm/kg (285-295) 09/26/22 08:05 Calcium 8.8 mg/dL (8.5-10.5) 09/26/22 08:05 Total Bilirubin 0.4 mg/dL (0.15-1.2) 09/26/22 08:05 AST 24 U/L (0-32) 09/26/22 08:05 ALT 12 U/L (0-33) 09/26/22 08:05 Alkaline Phosphatase 60 U/L (35-105) 09/26/22 08:05 Troponin T Baseline 327 ng/L (0-10) H* 09/26/22 08:05 Troponin T 120 Minute 649.9 ng/L (0-10) H 09/26/22 10:22 Delta Troponin T 322.9 ABS# (0-10) H* 09/26/22 10:22 Troponin T Hi Sens 6Hr 513.1 ng/L (0-10) H 09/26/22 14:42 Troponin T Hi Sens 6Hr Delta 186.1 ng/L (0-12) H* 09/26/22 14:42 Total Protein 6.7 g/dL (6.6-8.7) 09/26/22 08:05 Albumin 4.2 g/dL (3.5-5.2) 09/26/22 08:05 Globulin 2.5 g/dL (1.3-4.6) 09/26/22 08:05 EKG 1: My Interpretation: Bradycardia with a rate of 50 bpm. Diffuse nonspecific T wave changes. Other data: Cough from 09/26/2022 ?Normal LV size with a slightly diminished ejection fraction of ?48%.? The basal and mid inferior wall segment was found to be ?severely hypokinetic. ?Thickened mitral valve. Trace mitral valve regurgitation. ?Thickened aortic valve. ?Trace tricuspid valve regurgitation. ?Estimated pulmonary artery peak systolic pressure within normal ?limits ?There is no pericardial effusion. ?There are no intracardiac masses. ?Compared to the study from 08/09/2021, there is a drop in the LV ?ejection fraction and development of wall motion? abnormalities Cardiac catheterization on 02/01/2021 1. No disease noted in the Left Main, Left Anterior Descending, Right, or Circumflex coronary arteries. ? 2. The apex, mid posterior, mid septum, anterolateral, mid inferior santiago are dyskinetic. ? 3. All other visualized santiago normal. ? 4. Severe left ventricular systolic dysfunction. Ejection fraction of 25%. Echocardiogram in August 2021 1.? This is a technically difficult study. ?2.? Normal left ventricular size, systolic function and wall ?thickness, with no regional wall motion abnormalities. Left ?ventricular ejection fraction is estimated at 55-60 %. Normal ?diastolic function. ?3.? Normal right ventricular size and systolic function. ?4.? No significant valvular abnormality. ?5.? No prior similar studies to compare. A&P Assessment and plan (1) Non-ST elevation TN (NSTEMI): Patient's has a clinical features of a non-ST elevation myocardial infarction. Echocardiogram findings are different from what she had 2 years ago when she presented with the Takotsubo syndrome. Is possible that she could have a variant of Takotsubo. She may be continued on the heparin, nitrates, aspirin and Plavix. (2) Bradycardia: She has asymptomatic bradycardia. Etiology is not clear. Ischemia may be a contributing factor. At this point, she may require any specific intervention. (3) Left ventricular systolic dysfunction (LVSD): There is a drop in the ejection compared to the echocardiogram from last year. The [id number] myocardial infarction/variant of Takotsubo might be the contributing factor. (4) History of cardiomyopathy in adulthood: Patient had Takotsubo syndrome with LV ejection fraction around 25% by ech ocardiogram in January 2021. At this point, she has no evidence of heart failure. May continue on the current medications. LV ejection fraction is 48%. She also has a regional wall motion of abnormalities. Plan At this point, it would be appropriate to go ahead with a cardiac catheterization and then decide on further management. Alternatives were discussed as well. The patient would like to go ahead with the angiogram. The risk of bleeding, hematoma, vascular injury, myocardial infarction, myocardial perforation, malignant cardiac arrhythmias ,CVA, renal failure and other concomitant complications were explained in detail. Thank you for the opportunity to evaluate this patient make these recommendations Consult Attestations Medical Necessity Statement: Patient requires continued hospital stay for close monitoring and further management Coding Level of Care Code 29942 Diagnoses Non-ST elevation TN (NSTEMI) I21.4 Bradycardia R00.1 Left ventricular systolic dysfunction (LVSD) I51.9 History of cardiomyopathy in adulthood Z86.79
--- NOTE | 2022-09-26 12:52 | USCV_ITS ---
Emiliana Shea Age: 52 Gender: F : 1970 Exam Date: 09/26/2022 13:15 Ordering Phys: Mukesh Wilcox DO Technologist: CT Exam Location[place] [facility] [place] Indication: cp BP: 120 / 78 HR: 48 Rhythm: Sinus Technical Quality: Adequate MEASUREMENTS (Male / Female) Normal Values 2D ECHO LV Diastolic Diameter PLAX 5.6 cm 4.2 - 5.9 / 3.9 - 5.3 cm LV Systolic Diameter PLAX 3.8 cm IVS Diastolic Thickness 0.8 cm 0.6 - 1.0 / 0.6 - 0.9 cm IVS Systolic Thickness 1.6 cm LVPW Diastolic Thickness 1.1 cm 0.6 - 1.0 / 0.6 - 0.9 cm LVPW Systolic Thickness 1.3 cm LVOT Diameter 2.1 cm LV Ejection Fraction 2D Teich 60.0 % LV Ejection Fraction MOD 2C 49.1 % LV Ejection Fraction 2C AL 47.6 % LA Diameter 3.5 cm Aorta at Sinotubular Diameter 2.8 cm IVC Diameter 1.6 cm M-MODE Aortic Annulus Diameter 3.3 cm LA Ao Ratio MM 1.2 MV E Point Septal Separation 0.6 cm DOPPLER AV Peak Velocity 129.0 cm/s LVOT Peak Velocity 92.0 cm/s AV Area Cont Eq vti 2.6 cm squared AV Area Cont Eq pk 2.4 cm squared MV Peak Velocity 82.0 cm/s MV Area PHT 3.9 cm squared Mitral E to A Ratio 2.0 MV E' Velocity 42.0 cm/s Mitral E to MV E' Ratio 7.1 Mitral E to LV E' Lateral Ratio 6.1 Mitral E to LV E' Septal Ratio 8.5 TR Peak Velocity 124.6 cm/s TR Peak Gradient 6.2 mmHg TR Mean Velocity 95.5 cm/s TR Mean Gradient 3.9 mmHg TR Velocity Time Integral 31.2 cm TV Peak E Velocity 72.0 cm/s Right Atrial Pressure 3.0 mmHg Pulmonary Artery Systolic Pressu 9.2 mmHg PV Peak Velocity 110.0 cm/s FINDINGS Left Ventricle Normal LV size with a slightly diminished ejection fraction of 48%. The basal and mid inferior wall segment was found to be severely hypokinetic Right Ventricle The right ventricle is normal in size and function. Right Atrium The right atrium is normal in size. Left Atrium The left atrium is normal in size. Mitral Valve Thickened mitral valve. Trace mitral valve regurgitation. Aortic Valve Thickened aortic valve. Tricuspid Valve Trace tricuspid valve regurgitation. Pulmonic Valve Trace pulmonary valve regurgitation. Pericardium Normal pericardium without effusion. Aorta Normal ascending aorta dimension. IVC Normal inferior vena cava. CONCLUSIONS Normal LV size with a slightly diminished ejection fraction of 48%. The basal and mid inferior wall segment was found to be severely hypokinetic. Thickened mitral valve. Trace mitral valve regurgitation. Thickened aortic valve. Trace tricuspid valve regurgitation. Estimated pulmonary artery peak systolic pressure within normal limits There is no pericardial effusion. There are no intracardiac masses. Compared to the study from 08/09/2021, there is a drop in the LV ejection fraction and development of wall motion abnormalities Dr Quita Earl MD FAC (Electronically Signed) Final Date: 26 Sep 2022 17:00 S
--- NOTE | 2022-09-26 14:53 | ECG_ITS ---
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 Measurements Intervals [place] Rate: 50 P: 34 SC: 173 QRS: 42 QRSD: 85 T: 106 QT: 430 QTc: 393 Interpretive Statements SINUS BRADYCARDIA WITH SINUS ARRHYTHMIA ABNORMAL QRS-T ANGLE [QRS-T AXIS DIFFERENCE > 60] Compared to ECG 09/26/2022 11:00:39 No significant changes Electronically Signed On 09-26-2022 17:07:20 CDT by Nils Garcia M.D. [email or web address]
[2022-09-26 15:18] LABS: Troponin 5 6HR 513.1 ng/L (0-10); Troponin 5 6HR Delta 186.1 ng/L (0-12)
[2022-09-26] MEDS: sodium chlor 0.9% + KCl 20 mEq 20 MEQ/1,000 ML BAG 75 MEQ IV (16:35)
[2022-09-26 19:32] LABS: Partial Thromboplastin Time 88.1 SECONDS (23.9-36.7)
[2022-09-27] VITALS (81 sets, daily range): BP systolic 108–146; BP diastolic 56–86; PULSE 13–73; RESP 7–29; TEMP 36.7–37.1; O2SAT 95–98
[2022-09-27] MEDS: aspirin 325 mg Tablet PO (02:10)
[2022-09-27] MEDS: sodium chloride 0.9% 1,000 ML 50 ML IV (04:29)
[2022-09-27] MEDS: diphenhydrAMINE 50 mg Capsule PO (04:29)
--- NOTE | 2022-09-27 05:18 | XACV_ITS ---
Exam Room: 2 Ht: 168 cm Wt: 86 kg BSA: 2.03 m2 Gender: Female : 1970 Exam Priority: Routine Procedure(s): Procedure Description: Diagnostic procedure Procedure Description: Left Heart Catheterization Procedure Description: Left ventriculography Procedure Description: Coronary Angiography Rajat MATIAS; Diagnostic Cath Status: Elective Diagnostic Findings * Left main is a medium caliber vessel with no significant obstructive lesions. * Left anterior descending artery is a medium caliber vessel which appears to wrap around the LV apex minimally. The mid segment of the LAD was found to have mild diffuse intimal irregularities. * The left circumflex artery is a medium caliber vessel with no significant lesions. * The right coronary artery is a medium caliber dominant vessel with no significant stenotic lesions. Conclusions 1. Patient presenting with features of a non-ST elevation myocardial infarction with a troponin T in the 600 range. Diffuse nonspecific T wave changes. Cardiac catheterization revealed the following findings. 2. Mild diffuse intimal irregularities in the mid LAD. No significant stenotic lesions. LV ejection fraction of 45 to 50%. LVEDP of 26 mmHg. LV gram showing hypokinesia of the basal inferior and mid anterior wall segments. The features may suggest a variant of Takotsubo syndrome. Diagnostic RX Recommendation: medical therapy and/or counseling LV EDP: 26 mmHg Ventriculography Ejection Fraction: 45.0 % Left Ventriculography Findings: * The LV gram was performed in the GAMEZ projection. The LV cavity appears to be of borderline size. There is hypokinesia of the basal inferior and mid anterior wall segments. The overall LV ejection fraction was 45 to 50%. No filling defects were noted. No significant mitral valve prolapse or mitral regurgitation.. Pressures Phase:Rest AO : 123 / 79 ( 100 ) @ 7:22:00 AM 130 / 73 ( 98 ) @ 7:28:00 AM 131 / 73 ( 98 ) @ 7:28:00 AM LV : 123 / 4 / 26 @ 7:26:00 AM 130 / 7 / 32 @ 7:27:00 AM 126 / 6 / 30 @ 7:28:00 AM Valves Phase:DefaultPhase AV : 0.0 @ 6:36:35 AM 0.0 @ 6:36:35 AM AV Mean Gradient: 0.0 @ 6:36:35 AM 0.0 @ 6:36:35 AM Clinical Evaluation EBL: 5mL-10mL Procedural Details Procedure Consent Obtained. Admit Source: In Patient. Pre-Procedure Time Out. Identified patient by full name and date of as verbalized by the patient/guarantor. Does the consent match the physician's order: Yes. Accurate & Complete Informed Consent: Yes. Inpatient/Outpatient History & Physical on Chart: Yes. If H&P is completed, is and addenduem needed: Yes; If yes, is the addendum complete: No. Visualize and Verify Site with Patient/Guarantor: N/A. Relevant Radiology Images available: N/A. The risks, benefits, and alternatives of sedation and/or procedure were discussed by physician. The patient agrees to continue. Procedure started. [facility] Clinical Fraility Score: 3: Managing Well. Cashier Host/Hostess Indications: ACS > 24 hours. Chest Pain Symptom Assessment: Typical Angina Symptoms. Correct patient, site and procedure confirmed by cath team. Current diagnosis: NSTEMI. PERRLA. Strong, equal hand kosher butcher bilaterally. Lungs clear x 5 lobes. IV Site on Arrival: 22 gauge in the right forearm. IV Site on Arrival: 18 gauge in the left anticubital. IV Fluids: 0.9% NaCl at 75ml/hr. 0 mL infused prior to slab lifting supervisor. Pre Procedural Pulses: bilateral radial was 3+. Pre Procedural Pulses: bilateral posterior tibial was 3+. Pre Procedural Pulses: bilateral dorsalis pedis was 3+. Oxygen started at 2liters/min via nasal canula. right radial was prepped with chloroprep then draped in the usual sterile fashion. right groin was prepped with chloroprep then draped in the usual sterile fashion. Physician notified. Baseline sample Acquired. HR: 45 BPM. Physician arrived. Physician scrubbed in. Immediate Pre-Procedure Time Out. Correct Patient: Yes; Correct Procedure: Yes; Correct Site: Yes; Correct Patient Position: Yes; Correct Supplies: Yes; Dried Flammable Prep: Yes; Blood Products Available: No. Lidocaine 1% infiltrated to the right radial. Arterial access obtained. A 5 moroccan Merrill catheter in over wire. ACT drawn. Results 138 seconds. Therapeutic limits - pre-heparin administration 90-150 seconds and monitoring heparin during a vascular procedure >250 seconds. Multiple views taken of left coronary artery. Catheter removed over the exchange wire. A 5 moroccan JR4 catheter in over wire. Multiple views taken of right coronary artery. Catheter removed over the exchange wire. A 5 moroccan Angled Pig catheter in over wire. EDP Sample taken: LV 123/4,26; HR: 57 BPM; SpO2: 97%. LV gram performed in GAMEZ @ 10 mL/second for a total of 30 mL. EDP Sample taken: LV 130/7,32; HR: 59 BPM; SpO2: 98%. Pullback taken: LV 126/6,30; AO 130/73(98); Mean: 0mmHg, Peak to Peak: 0mmHg, SEP: 6sec/min; HR: 59 BPM; SpO2: 98%. Physician scrubbed out. A TR Band was successful obtaining hemostatsis at the Right Radial artery insertion site. Post Procedure: Pulses reassessed and unchanged. PERRLA. Strong, equal hand kosher butcher bilaterally. No VTE prophylaxis required. Medication's Wasted: Lidocaine 1% = 1 mL. Medication's Wasted: Nitro = 49.8 mg. Medication's Wasted: Heparin = 3000 units. Medication's Wasted: Other = Fentanyl 50 mcg. Medication's Wasted: Verapamil = 5 mg. Total IV fluids: 150 mL. Post-op diagnosis: Takotsubo. Complications: None. Estimated blood loss: 5mL-10mL. Responsiveness - Normal response to verbal stimuli; alert and oriented, PERRLA. Airway - Unaffected, no intervention required; spontaneous ventilation. Circulation: W/N/L, pulses unchanged. Nausea/Vomiting: No. Procedure completed. Patient transferred by wheelchair to 1st floor. Vital chart was stopped. Access Site Site: Right Radial artery Sheath Size: 6 Fr Hemostasis Method: TR Band Hemostasis Success: Successful Procedure Medications Start: 6:07 AM Stop: 6:07 AM Medication: Versed Amount: 1 mg Route: I.V. Start: 6:07 AM Stop: 6:07 AM Medication: Fentanyl Amount: 50 mcg Route: I.V. Start: 6:09 AM Stop: 6:09 AM Medication: Versed Amount: 1 mg Route: I.V. Start: 6:14 AM Stop: 6:14 AM Medication: Nitrogylcerin Amount: 200 mcg Route: I.A. Start: 6:20 AM Stop: 6:20 AM Medication: Versed Amount: 1 mg Route: I.V. Start: 6:21 AM Stop: 6:21 AM Medication: 0.9% Saline Amount: 250 Route: I.V. bolus Start: 6:21 AM Stop: 6:21 AM Medication: Heparin Amount: 3000 units Route: I.V. I, the attending physician, have reviewed and verified all procedure medications. Yes, all medications given per verbal order History/Risk Factors Hypertension: No Dyslipidemia: Yes Peripheral Arterial Disease (PAD): No Myocardial Infarction (FL): No Obesity: No Renal Disease: No Prior Interventions PCI: No CABG: No Valve Surgery: No Report Signatures Finalized by Dr Quita Earl MD [facility] on 09/27/2022 09:57 AM
--- NOTE | 2022-09-27 06:05 | P.HPUD_ITS ---
Surgery/Procedure H&P Update DATE OF PROCEDURE: September 27, 2022 DATE H&P PERFORMED: 09/26/22 H&P UPDATE INFORMATION: I have reviewed H&P completed within last 30 days, I have examined patient prior to procedure and No changes to prior documentation PREOP DIAGNOSIS: ASHD/NSTEMI PRIMARY INDICATION FOR PROCEDURE: NSTEMI PLANNED PROCEDURE: Operation Date: 09/27/22 06:00 Proposed Procedures p [facility] with coronary angio and poss PCI(Not Applicable) - Quita Earl MD PATIENT REASSESSED PRIOR TO SEDATION, WITH NO CHANGE NOTED: Yes PHYSICAL EXAM: alert, oriented x 3, clear to auscultation bilaterally, regular rate & rhythm and operative site marked AIRWAY EVAL/ANESTHESIA PLAN: normal airway, ASA III, Monitored Anesthesia, Local Anesthesia and Risks, benefits & alternatives of sedation and/or procedure discussed
[2022-09-27 06:39] LABS: Basophils # 0.1 10^3/uL (0.0-0.1); Basophils % 0.7 %; Eosinophils # 0.3 10^3/uL (0.0-0.8); Eosinophils % 2.9 %; Hematocrit 37.5 % (37.0-47.0); Hemoglobin 12.3 g/dL (11.5-15.3); Lymphocytes # 3.1 10^3/uL (0.8-4.8); Lymphocytes % 28.1 %; Mean Corpuscular HGB Conc 32.8 g/dL (30.0-36.0); Mean Corpuscular Hemoglobin 30.1 pg (28.0-34.0); Mean Corpuscular Volume 91.9 fl (81-99); Mean Platelet Volume 10.9 fL (7.4-10.4); Monocytes # 0.8 10^3/uL (0.2-0.9); Monocytes % 6.9 %; Neutrophils # 6.75 10^3/uL (1.8-7.7); Neutrophils % 61.1 %; Nucleated Red Blood Cells % 0 %; Platelet Count 257 10^3/cmm (130-400); Red Blood Count 4.08 10^6/uL (4.1-5.3); Red Cell Distribution Width 13.2 % (12.1-15.1)
[2022-09-27 06:54] LABS: Estmated Average Glucose 100; Hemoglobin A1C 5.1 % (4.0-6.0)
[2022-09-27 07:02] LABS: Blood Urea Nitrogen 9 mg/dL (6-20); Calcium 8.7 mg/dL (8.5-10.5); Carbon Dioxide 24 mmol/L (22-29); Chloride 107 mmol/L (98-107); Chol HDL Ratio 3.38 mg/dL (0.0-4.40); Cholesterol 216 mg/dL (0-200); Glomerular Filtration Rate 87.2 mL/min (90-130); Glucose 88 mg/dL (65-115); HDL Cholesterol 64 mg/dL (60-100); LDL Cholesterol Calculated 129 mg/dL (50-129); LDL HDL Ratio 2.02 RATIO (0.00-3.22); Magnesium 1.9 mg/dL (1.7-2.3); Osmolality Calculated 290 mOsm/kg (285-295); Phosphorus 3.4 mg/dL (2.5-4.5); Sodium 141 mmol/L (136-145); Thyroid Stimulating Hormone 3.59 uIU/mL (0.27-4.20); Triglycerides 114 mg/dL (0-150)
[2022-09-27] MEDS: pantoprazole DR 40 mg Tablet PO (08:36)
[2022-09-27] MEDS: clopidogrel 75 mg Tablet PO (08:36)
--- NOTE | 2022-09-27 09:46 | PC.CHAP ---
Pastoral Care Encounter/Spiritual Assessment Type of Contact [] Declined transfer station operator visit [] Patient/Family/Request visit [] Outpatient visit [] Follow-up visit [] Physician referral [] Code/Alert [x] Routine visit [] Staff referral [] Actively dying [] Patient sleeping [] Family support [] [] Out of room [] Palliative care [] [] Receiving care in room [] Pre-surgical visit [] Trauma [] Long length of stay [] ICU visit [] Other: Relational/Emotional Strength [] Patient feels connected with others/family/visitors/staff [] Distress [] Loneliness/isolation [] Abandonment Spirituality of Patient [] Person of Cynthia [] Attends Episcopalian of their Cynthia [] Believes in Prayer [] Reads Bible or Scientologist materials [x] There are Spiritual issues to be addressed Corrugator Interventions [] Prayer [] Active listening [] Non-anxious presence [] Spiritual/emotional support [] Crisis/trauma care [] Spiritual counseling [] Bereavement support [] Provided bereavement packet [] Provided Bible/devotional materials [] Provided toy/stuffed animal, coloring book to patient or family member [] Provided Communion [] Anointing/[place] [] Salvation [] Completed spiritual assessment [] Other: Impact on Illness or Injury [] Angry [] Fearful [] Anxious [] Often cries [] Exhaustion [] Unable to work [] Unable to attend episcopal [] Unable to walk/stand [] Unable to read [] Unable to drive [] Unable to eat/drink [] Unable to sleep [] Unable to be with family [] Patient intubated [] Other: Summary Time spent with patient 1 min
[2022-09-27 11:13] LABS: Erythrocyte Sedimentation Rate 10 mm/hr (0-15)
--- NOTE | 2022-09-27 15:12 | PM.PN ---
Subjective Subjective: Patient was seen this morning after coronary angiogram, she tells me that the heart doctor told her it looked okay, she tells me that she has a history of Takotsubo cardiomyopathy, this happened 2 years ago, when she lost all her family, she really has not been under any stress recently,, no fevers, chills, no cough, she is actually been quite happy for the last few days she does tell me that she worked in her garden, she quite overexerted herself, as she had a sudden burst of energy to do a lot of gardening work, Vitals/I&O/Wt Last Vital Signs Temp 98.5 F 09/27/22 11:21 Pulse 56 L 09/27/22 12:30 Resp 16 09/27/22 12:30 BP 131/82 09/27/22 12:30 Pulse Ox 97 09/27/22 11:21 O2 Del Method Room Air 09/27/22 11:21 09/27/22 09/27/22 09/27/22 06:59 14:59 22:59 Intake Total 1008.7 / 1428.7 480 / 480 Balance 1008.7 / 1428.7 480 / 480 Weight last 48 hrs Weight 86.183 kg Physical Exam Const: COMMON NORMALS: no acute distress and patient oriented x3 Resp: COMMON NORMALS: normal respiratory effort, No retractions, No use of accessory muscles and clear to auscultation bilaterally AUSCULTATION: clear to auscultation bilaterally Cardio: COMMON NORMALS: regular rate, regular rhythm, S1 normal heart sound present and S2 normal heart sound present RATE: regular rate RHYTHM: regular rhythm HEART SOUNDS: S1 normal heart sound present and S2 normal heart sound present GI: COMMON NORMALS: Normal to inspection, nondistended, normoactive bowel sounds present and non-tender Extremity: COMMON NORMALS: no clubbing, cyanosis or edema and no pedal edema Neuro: COMMON NORMALS: patient oriented x3 Psych: COMMON NORMALS: mental status grossly normal Data 09/27/22 06:00 09/27/22 06:00 A&P Assessment and plan (1) Non-ST elevation AL (NSTEMI): Underwent coronary angiography, no obstructive CAD Echocardiogram ?Normal LV size with a slightly diminished ejection fraction of ?48%.? The basal and mid inferior wall segment was found to be ?severely hypokinetic. ?Thickened mitral valve. Trace mitral valve regurgitation. ?Thickened aortic valve. ?Trace tricuspid valve regurgitation. ?Estimated pulmonary artery peak systolic pressure within normal ?limits ?There is no pericardial effusion. ?There are no intracardiac masses. ?Compared to the study from 08/09/2021, there is a drop in the LV ?ejection fraction and development of wall motion? abnormalities We will continue home Plavix (2) Sinus bradycardia: In a patient on chronic beta-blockade. Resting heart rate is usually upper 50s, around 60. Heart rate has been 30s to 40s in the emergency room today. Last dose of metoprolol was on 09/25/2022. She did not take it today. Unclear if a contributing factor to #1 or a result. Telemetry monitoring Beta-fernando currently held Will not continue Nitropaste secondary to bradycardia though do need to keep in mind that her symptoms revolved with nitroglycerin at home Check TSH, magnesium (3) Takotsubo cardiomyopathy: Identified in February 2021 with ejection fraction as low as 25%. Symptoms resolved and last echocardiogram in August 2021 showed EF at 55 to 60%. Has been maintained on low-dose SHARDA inhibitor, beta-blockade and Plavix due to this history. She had previously been on statin therapy as well but this was stopped due to restless legs and improvement in diet and exercise/lifestyle modifications. Continuing home Plavix Home beta-fernando is currently held due to bradycardia Due to low normal blood pressures, presently holding low-dose SHARDA inhibitor but anticipate resumption at some point (4) Dyslipidemia: Reports recent lipid panel showed total cholesterol of 106. No longer on atorvastatin therapy due to side effects that she experienced. Check lipid panel (5) Asthma: Chronic, not acute. Has as needed albuterol if needed at home. As needed albuterol (6) Anxiety: Chronic issue related to PTSD and not liking being outside of her comfortable/familiar surroundings. Has done well maintaining with exercise, self talk and reaching out to others. Discussed with patient how good it was that she listened to her body today as the symptoms she was experiencing were more than anxiety. Reiterated with her that when she has similar symptoms or other symptoms that are concerning, that she should seek out appropriate medical evaluation to rule out serious problems. Let her know it is okay if she were to come in and nothing identifiable was found. Supportive care Plan Low rate of IV fluids PPI for GI prophylaxis We will order SAMIR, ESR, CRP, TSH, has no shortness of breath complaints,, no current chest pain complaints Attestations Medical Necessity Statement*: Patient requires hospitalization for Takotsubo cardiomyopathy Coding Level of Care Code Acute Code for Chg Fwd Diagnoses Non-ST elevation AL (NSTEMI) I21.4 Sinus bradycardia R00.1 Takotsubo cardiomyopathy I51.81 Dyslipidemia E78.5 Asthma J45.909 Anxiety F41.9
--- NOTE | 2022-09-27 15:16 | USCV_ITS ---
Emiliana Shea Age: 52 Gender: F : 1970 Exam Date: 09/27/2022 15:36 Ordering Phys: Ajay Chua MD Technologist: TRINIDAD [place] [facility] [place]: Stasis HISTORY: Stasis PROCEDURES: Venous duplex imaging was performed in bilateral lower extremities. The following venous structures were evaluated: common femoral vein, profunda vein, proximal portion of the greater saphenous vein, superficial femoral vein, and the popliteal vein. In addition, the posterior tibial and peroneal trunk were evaluated. Serial compression, augmentation maneuvers, and spectral Doppler flow evaluation were performed. FINDINGS: No evidence of DVT seen in any vessel visualized at this time. CONCLUSIONS No evidence of right lower extremity DVT. No evidence of left lower extremity DVT. Aamir Puga MD (Electronically Signed) Final Date: 27 Sep 2022 17:24 S
[2022-09-27 16:32] LABS: D Dimer 0.45 ug/mIFEU (0-0.59)
--- NOTE | 2022-09-27 19:14 | PM.PN ---
Subjective Subjective: The patient denies any chest pain or palpitation. No unusual shortness of breath. Underwent cardiac catheterization this morning. Was found to have no significant coronary artery disease. LV gram revealed hypokinetic basal inferior wall and mid anterior wall segments. Features were consistent with a variant of Takotsubo syndrome. Medications: Medication Review Details: Current Medications Acetaminophen (Acetaminophen 325 Mg Tablet) 650 mg PO Q6H PRN PRN Reason: Mild/Mod Pain Or Temp >/= 101 Al Hydrox/Mg Hydrox/Simethicone (Lpoc-Vvd-Wqamcujvu-Princess 30 Ml Udc) 30 ml PO Q15M PRN PRN Reason: INDIGESTION Albuterol Sulfate (Albuterol 2.5 Mg/3 Ml Neb) 2.5 mg INHALATION Q6H.RESP PRN PRN Reason: SHORTNESS OF BREATH Alprazolam (Alprazolam 0.5 Mg Tablet) 0.25 mg PO TID PRN PRN Reason: ANXIETY Atropine Sulfate (Atropine 1 Mg/Ml Sdv 1 Ml) 0.5 mg IVP PRN PRN PRN Reason: Symptomatic bradycardia Bisacodyl (Bisacodyl 5 Mg Tablet) 10 mg PO DAILY PRN; Protocol PRN Reason: Constipation (see protocol) Calcium Carbonate (Calcium Carbonate 500 Mg Chew Tablet) 1,000 mg PO Q4H PRN PRN Reason: DYSPEPSI Clopidogrel Bisulfate (Clopidogrel 75 Mg Tablet) 75 mg PO DAILY [facility] Last Admin: 09/27/22 08:36 Dose: 75 mg Fentanyl (Fentanyl 50 Mcg/Ml Inj 2ml) 50 mcg IVP PRN PRN PRN Reason: Prior to sheath removal Potassium Chloride/Sodium Chloride (Sodium Chlor 0.9% + Kcl 20 Meq) 20 meq in 1,000 mls @ 50 mls/hr IV .Q20H [facility] Last Infusion: 09/27/22 19:02 Dose: Infused Sodium Chloride (Sodium Chloride 0.9%) 1,000 mls @ 50 mls/hr IV .Q20H ONE Stop: 09/28/22 00:59 Last Admin: 09/27/22 04:29 Dose: 50 mls/hr Magnesium Hydroxide (Magnesium Hydroxide 30 Ml Udc) 30 ml PO DAILY PRN PRN Reason: CONSTIPATION Naloxone HCl (Naloxone 0.4 Mg/Ml Sdv) 0.1 mg IVP Q2M PRN PRN Reason: RESPIRATORY RATE < 8/MIN Nitroglycerin (Nitroglycerin 0.4 Mg Sublingual Tablet) 0.4 mg SUBLINGUAL Q5M PRN PRN Reason: chest pain Ondansetron HCl (Ondansetron 2 Mg/Ml Sdv 2 Ml) 4 mg IVP Q8H PRN PRN Reason: vomiting, or N/V if npo Pantoprazole Sodium (Pantoprazole Dr 40 Mg Tablet) 40 mg PO DAILY [facility] Last Admin: 09/27/22 08:36 Dose: 40 mg Vitals/I&O/Wt Last Vital Signs Temp 98.8 F 09/27/22 15:59 Pulse 57 L 09/27/22 15:59 Resp 16 09/27/22 15:59 BP 123/56 09/27/22 15:59 Pulse Ox 98 09/27/22 15:59 O2 Del Method Room Air 09/27/22 15:59 09/27/22 09/27/22 09/27/22 06:59 14:59 22:59 Intake Total 1008.7 / 1428.7 480 / 480 0 / 480 Balance 1008.7 / 1428.7 480 / 480 0 / 480 Weight last 48 hrs Weight 190 lb Physical Exam Narrative: GENERAL: The patient is alert and oriented times three. Not in any acute distress. HEENT: No significant pallor, icterus or lymphadenopathy.Oral cavity: There are no mucous membrane lesions. NECK: Trachea appears to be central. No masses noted. No JVD or thyromegaly appreciated. RESPIRATORY: Chest is symmetrical. No intercostals muscle retraction or any accessory muscle activation. There is no chest wall tenderness. Breath sounds are heard bilaterally. No rales or rhonchi heard. No evidence of any consolidation. BREASTS: Deferred. HEART: The heart sounds are normal. No S3 or S4. No significant murmurs. No pericardial rub ABDOMEN: No vessel pulsations or distention. No tenderness. No organomegaly appreciated. Bowel sounds are normally heard. : Deferred. RECTAL: Deferred. LYMPHATIC: No lymphadenopathy noted in the neck. EXTREMITIES: No edema or cyanosis. No clubbing. MUSCULOSKELETAL: No acute joint deformities or swelling SKIN: There are no significant rashes or ecchymosis NEUROPSYCHIATRIC: The patient is alert and oriented x3. Appears to be in a good mood. No tremors or rigidity noted. Data 09/28/22 03:39 09/28/22 03:39 A&P Assessment and plan (1) Non-ST elevation [place] (NSTEMI): Most likely related to a variant of Takotsubo syndrome. At this point, the heparin may be discontinued. May continue on the beta-fernando and SHARDA inhibitor. (2) Bradycardia: The heart rate stays in the 50s. Since she is in the asymptomatic, may continue on the current medications (3) Left ventricular systolic dysfunction (LVSD): LV ejection fraction was found to be 45 to 50%. Plan The patient would benefit from GDMT.Will Try to optimize the current medications. Attestations Medical Necessity Statement*: Possible discharge home tomorrow Coding Level of Care Code 77381 Diagnoses Non-ST elevation [place] (NSTEMI) I21.4 Bradycardia R00.1 Left ventricular systolic dysfunction (LVSD) I51.9
[2022-09-28] VITALS (9 sets, daily range): BP systolic 88–146; BP diastolic 43–84; PULSE 49–59; RESP 4–19; TEMP 36.7; O2SAT 96–98
[2022-09-28 04:07] LABS: Basophils # 0.1 10^3/uL (0.0-0.1); Basophils % 0.7 %; Eosinophils # 0.4 10^3/uL (0.0-0.8); Eosinophils % 3.7 %; Hematocrit 37.3 % (37.0-47.0); Hemoglobin 12.3 g/dL (11.5-15.3); Lymphocytes # 2.7 10^3/uL (0.8-4.8); Lymphocytes % 27.5 %; Mean Corpuscular Hemoglobin 30.4 pg (28.0-34.0); Mean Corpuscular Volume 92.1 fl (81-99); Mean Platelet Volume 10.9 fL (7.4-10.4); Monocytes # 0.8 10^3/uL (0.2-0.9); Monocytes % 8.4 %; Neutrophils # 5.76 10^3/uL (1.8-7.7); Neutrophils % 59.3 %; Nucleated Red Blood Cells % 0 %; Platelet Count 249 10^3/cmm (130-400); Red Blood Count 4.05 10^6/uL (4.1-5.3); Red Cell Distribution Width 13.1 % (12.1-15.1); White Blood Count 9.7 10^3/uL (4.0-10.0)
[2022-09-28 04:30] LABS: Anion Gap 12.9 (5-19); Blood Urea Nitrogen 8 mg/dL (6-20); Calcium 8.8 mg/dL (8.5-10.5); Carbon Dioxide 24 mmol/L (22-29); Chloride 106 mmol/L (98-107); Glomerular Filtration Rate 87.2 mL/min (90-130); Glucose 86 mg/dL (65-115); Osmolality Calculated 286 mOsm/kg (285-295); Potassium 3.9 mmol/L (3.5-5.1); Sodium 139 mmol/L (136-145)
[2022-09-28] MEDS: clopidogrel 75 mg Tablet PO (08:42)
[2022-09-28] MEDS: pantoprazole DR 40 mg Tablet PO (08:42)
[2022-09-28] MEDS: iohexol 350 mg/mL 500 mL Btl (per mL) IV (08:44)
--- NOTE | 2022-09-28 09:00 | CT_ITS ---
WS: [id number] CTA OF THE CHEST WITH PULMONARY EMBOLISM PROTOCOL TECHNIQUE: High-resolution contrast enhanced CTA of the chest with coronal and sagittal reformatted i mages with pulmonary embolism protocol. MIP images are also reviewed. CLINICAL INFORMATION: sob and chest pain COMPARISON: None. DLP: 368.[address] scans at [facility] use at least one of these dose optimization techniques: automated e xposure control; mA and/or kV adjustment per patient size (includes targeted exams where dose is matc hed to clinical indication); or iterative reconstruction. FINDINGS: Proximal main pulmonary arteries are normal. Normal segmental and subsegmental pulmonary arteries. No evidence of pulmonary embolus. Normal caliber thoracic aorta. Normal descending thoracic aorta. Adre nal glands are normal. Normal GE junction. No mediastinal or hilar lymphadenopathy. No axillary lymph adenopathy. No focal pneumonia or pleural fluid. No suspicious pulmonary parenchymal opacities. No pl eural fluid. Mild thoracic curve. Mild thoracic kyphosis. CT/CT angio chest PE protcl [id number] IMPRESSION: 1. No evidence of pulmonary embolus. 2. No acute pulmonary infiltrates. Lungs well aerated. 3. No pleural fluid. 4. No other suspicious findings.
--- NOTE | 2022-09-28 09:44 | P.PN_ITS ---
Subjective Subjective: The patient is feeling okay. No chest pain or shortness of breath. Vitals are stable. No hematoma bleeding from the radial artery puncture site. Medications: Medication Review Details: Current Medications Acetaminophen (Acetaminophen 325 Mg Tablet) 650 mg PO Q6H PRN PRN Reason: Mild/Mod Pain Or Temp >/= 101 Al Hydrox/Mg Hydrox/Simethicone (Fdih-Uns-Bhastkchd-Princess 30 Ml Udc) 30 ml PO Q15M PRN PRN Reason: INDIGESTION Albuterol Sulfate (Albuterol 2.5 Mg/3 Ml Neb) 2.5 mg INHALATION Q6H.RESP PRN PRN Reason: SHORTNESS OF BREATH Alprazolam (Alprazolam 0.5 Mg Tablet) 0.25 mg PO TID PRN PRN Reason: ANXIETY Atropine Sulfate (Atropine 1 Mg/Ml Sdv 1 Ml) 0.5 mg IVP PRN PRN PRN Reason: Symptomatic bradycardia Bisacodyl (Bisacodyl 5 Mg Tablet) 10 mg PO DAILY PRN; Protocol PRN Reason: Constipation (see protocol) Calcium Carbonate (Calcium Carbonate 500 Mg Chew Tablet) 1,000 mg PO Q4H PRN PRN Reason: DYSPEPSI Clopidogrel Bisulfate (Clopidogrel 75 Mg Tablet) 75 mg PO DAILY [facility] Last Admin: 09/28/22 08:42 Dose: 75 mg Fentanyl (Fentanyl 50 Mcg/Ml Inj 2ml) 50 mcg IVP PRN PRN PRN Reason: Prior to sheath removal Potassium Chloride/Sodium Chloride (Sodium Chlor 0.9% + Kcl 20 Meq) 20 meq in 1,000 mls @ 50 mls/hr IV .Q20H [facility] Last Infusion: 09/27/22 19:02 Dose: Infused Magnesium Hydroxide (Magnesium Hydroxide 30 Ml Udc) 30 ml PO DAILY PRN PRN Reason: CONSTIPATION Naloxone HCl (Naloxone 0.4 Mg/Ml Sdv) 0.1 mg IVP Q2M PRN PRN Reason: RESPIRATORY RATE < 8/MIN Nitroglycerin (Nitroglycerin 0.4 Mg Sublingual Tablet) 0.4 mg SUBLINGUAL Q5M PRN PRN Reason: chest pain Ondansetron HCl (Ondansetron 2 Mg/Ml Sdv 2 Ml) 4 mg IVP Q8H PRN PRN Reason: vomiting, or N/V if npo Pantoprazole Sodium (Pantoprazole Dr 40 Mg Tablet) 40 mg PO DAILY [facility] Last Admin: 09/28/22 08:42 Dose: 40 mg Vitals/I&O/Wt Last Vital Signs Temp 98.0 F 09/28/22 07:48 Pulse 58 L 09/28/22 08:00 Resp 16 09/28/22 08:00 BP 105/54 09/28/22 07:48 Pulse Ox 96 09/28/22 08:00 O2 Del Method Room Air 09/28/22 08:00 09/27/22 09/28/22 09/28/22 22:59 06:59 14:59 Intake Total 240 / 720 1000 / 1720 360 / 360 Balance 240 / 720 1000 / 1720 360 / 360 Physical Exam Narrative: GENERAL: The patient is alert and oriented times three. Not in any acute distress. HEENT: No significant pallor, icterus or lymphadenopathy.Oral cavity: There are no mucous membrane lesions. NECK: Trachea appears to be central. No masses noted. No JVD or thyromegaly appreciated. RESPIRATORY: Chest is symmetrical. No intercostals muscle retraction or any accessory muscle activation. There is no chest wall tenderness. Breath sounds are heard bilaterally. No rales or rhonchi heard. No evidence of any con solidation. BREASTS: Deferred. HEART: The heart sounds are normal. No S3 or S4. No significant murmurs. No pericardial rub ABDOMEN: No vessel pulsations or distention. No tenderness. No organomegaly appreciated. Bowel sounds are normally heard. : Deferred. RECTAL: Deferred. LYMPHATIC: No lymphadenopathy noted in the neck. EXTREMITIES: No edema or cyanosis. No clubbing. MUSCULOSKELETAL: No acute joint deformities or swelling SKIN: There are no significant rashes or ecchymosis NEUROPSYCHIATRIC: The patient is alert and oriented x3. Appears to be in a good mood. No tremors or rigidity noted. Data 09/28/22 03:39 09/28/22 03:39 Other Labs: Laboratory Last Values WBC 9.7 10^3/uL (4.0-10.0) 09/28/22 03:39 RBC 4.05 10^6/uL (4.1-5.3) L 09/28/22 03:39 Hgb 12.3 g/dL (11.5-15.3) 09/28/22 03:39 Hct 37.3 % (37.0-47.0) 09/28/22 03:39 MCV 92.1 fl (81-99) 09/28/22 03:39 MCH 30.4 pg (28.0-34.0) 09/28/22 03:39 MCHC 33.0 g/dL (30.0-36.0) 09/28/22 03:39 RDW 13.1 % (12.1-15.1) 09/28/22 03:39 Plt Count 249 10^3/cmm (130-400) 09/28/22 03:39 MPV 10.9 fL (7.4-10.4) H 09/28/22 03:39 Neut % (Auto) 59.3 % 09/28/22 03:39 Lymph % (Auto) 27.5 % 09/28/22 03:39 [place] % (Auto) 8.4 % 09/28/22 03:39 Eos % (Auto) 3.7 % 09/28/22 03:39 Baso % (Auto) 0.7 % 09/28/22 03:39 Neut # (Auto) 5.76 10^3/uL (1.8-7.7) 09/28/22 03:39 Lymph # (Auto) 2.7 10^3/uL (0.8-4.8) 09/28/22 03:39 [place] # (Auto) 0.8 10^3/uL (0.2-0.9) 09/28/22 03:39 Eos # (Auto) 0.4 10^3/uL (0.0-0.8) 09/28/22 03:39 Baso # (Auto) 0.1 10^3/uL (0.0-0.1) 09/28/22 03:39 Nucleated RBC % (auto) 0 % 09/28/22 03:39 Nucleated RBCs # 0.0 /100WBC 09/28/22 03:39 ESR 10 mm/hr (0-15) 09/27/22 06:00 APTT 88.1 SECONDS (23.9-36.7) H D 09/26/22 19:06 D-Dimer 0.45 ug/mIFEU (0-0.59) 09/27/22 15:57 Sodium 139 mmol/L (136-145) 09/28/22 03:39 Potassium 3.9 mmol/L (3.5-5.1) 09/28/22 03:39 Chloride 106 mmol/L (98-107) 09/28/22 03:39 Carbon Dioxide 24 mmol/L (22-29) 09/28/22 03:39 Anion Gap 12.9 (5-19) 09/28/22 03:39 BUN 8 mg/dL (6-20) 09/28/22 03:39 Creatinine 0.7 mg/dL (0.5-0.9) 09/28/22 03:39 GFR Calculation 87.2 mL/min (90-130) L 09/28/22 03:39 Glucose 86 mg/dL (65-115) 09/28/22 03:39 Estimat Average Glucose 100 09/27/22 06:00 Hemoglobin A1c 5.1 % (4.0-6.0) 09/27/22 06:00 Calculated Osmolality 286 mOsm/kg (285-295) 09/28/22 03:39 Calcium 8.8 mg/dL (8.5-10.5) 09/28/22 03:39 Phosphorus 3.4 mg/dL (2.5-4.5) 09/27/22 06:00 Magnesium 1.9 mg/dL (1.7-2.3) 09/27/22 06:00 Total Bilirubin 0.4 mg/dL (0.15-1.2) 09/26/22 08:05 AST 24 U/L (0-32) 09/26/22 08:05 ALT 12 U/L (0-33) 09/26/22 08:05 Alkaline Phosphatase 60 U/L (35-105) 09/26/22 08:05 Troponin T Baseline 327 ng/L (0-10) H* 09/26/22 08:05 Troponin T 120 Minute 649.9 ng/L (0-10) H 09/26/22 10:22 Delta Troponin T 322.9 ABS# (0-10) H* 09/26/22 10:22 Troponin T Hi Sens 6Hr 513.1 ng/L (0-10) H 09/26/22 14:42 Troponin T Hi Sens 6Hr Delta 186.1 ng/L (0-12) H* 09/26/22 14:42 C-Reactive Protein 3.0 mg/L (0.0-4.9) 09/27/22 06:00 Total Protein 6.7 g/dL (6.6-8.7) 09/26/22 08:05 Albumin 4.2 g/dL (3.5-5.2) 09/26/22 08:05 Globulin 2.5 g/dL (1.3-4.6) 09/26/22 08:05 Triglycerides 114 mg/dL (0-150) 09/27/22 06:00 Cholesterol 216 mg/dL (0-200) H 09/27/22 06:00 LDL Cholesterol, Calc 129 mg/dL (50-129) 09/27/22 06:00 HDL Cholesterol 64 mg/dL (60-100) 09/27/22 06:00 LDL/HDL Ratio 2.02 RATIO (0.00-3.22) 09/27/22 06:00 Cholesterol/HDL Ratio 3.38 mg/dL (0.0-4.40) 09/27/22 06:00 TSH 3.59 uIU/mL (0.27-4.20) 09/27/22 06:00 A&P Assessment and plan (1) Non-ST elevation [place] (NSTEMI): Most likely related to a variant of Takotsubo syndrome. May continue on the current medications. (2) Bradycardia: The heart rate stays in the 50s. Since she is in the asymptomatic, may continue on the current medications. According the patient, her heart rate has been staying in the 50s and 60s most of the times. (3) Left ventricular systolic dysfunction (LVSD): LV ejection fraction was found to be 45 to 50%. We will continue the lisinopril Plan The patient would benefit from GDMT.Will Try to optimize the current medications. [facility] weeks with nurse practitioner. I may see him in the office in 2 months Attestations Medical Necessity Statement*: Discharge home today Coding Level of Care Code 10848 Diagnoses Non-ST elevation AR (NSTEMI) I21.4 Bradycardia R00.1 Left ventricular systolic dysfunction (LVSD) I51.9
--- NOTE | 2022-09-28 10:09 | P.DS_ITS ---
Discharge Providers Date of Admission: 09/26/22 14:37 Date of Discharge: September 28, 2022 Attending Provider at Admission: Desi Mcallister MD Attending Provider at Discharge: Ajay Chua MD Primary Care Provider: CHITRA Harrell Diagnoses at Discharge Discharge Diagnosis (1) Non-ST elevation NE (NSTEMI): Status: Acute (2) Bradycardia: Status: Acute (3) Left ventricular systolic dysfunction (LVSD): Status: Acute Reason for Visit Reason for Visit: CHEST PAIN Hospital Course Hospital Course Emiliana Shea is a 52 year old female who presented to the emergency room with chief complaint of not feeling right.? Yesterday she was excessively tired and went to bed early.? She had worked outside using a [employer] on a pole and attributed her exhaustion to this.? She had some mild left shoulder, left upper back discomfort.? She slept through the night and it was light out when she woke up.? That is not normal for her.? Her mind did not seem as clear as usual and she found it difficult to get her day going.? She eventually got up and went into the bathroom.? She started to notice that she had discomfort in her abdomen.? She felt like she might have some loose stools coming and so sat on the toilet.? She then became nauseated and diaphoretic.? She did not in fact have any destinee GI symptoms but describes sweating like crazy .? At the same time the discomfort in her left shoulder/left upper back area moved into her neck.? She describes this as a muscle ache.? Although not as severe, her symptoms were identical to when she experienced Takotsubo back in 2020.? She has a lot of anxiety at baseline when it comes to leaving her familiar surroundings.? She has a history of PTSD.? She ended up calling a neighbor to help her decide what to do.? The neighbor encouraged 911 to be called.? She did take a nitroglycerin and by the time EMS arrived, her symptoms had nearly completely abated.? Initial EKG showed sinus bradycardia at 45 bpm with nonspecific T wave changes.? Initial troponin was 327 with a 2-hour troponin at 649 for a 2-hour delta of 322.? She denies any other episodes of chest discomfort.? Yesterday when she was using the chainsaw on a pole she had left shoulder/left upper back discomfort but denied chest pain.? She denies any orthopnea, lower extremity edema, shortness of breath.? She does have a history of asthma.? She is a former smoker.? She had a cardiac catheterization in 2020 that showed no obstructive disease.? Ejection fraction at the time was 25%.? Echocardiogram from August of last year showed recovery at ejection fraction 55 to 60%.? She has continued on Plavix, low-dose SHARDA inhibitor and low-dose beta- blockade since that time.? She reports having lost weight intentionally, exercising, trying to eat better.? Her cholesterol has been okay.? She no longer takes statin therapy due to issues with restless legs. She is followed [facility] for [facility] medical care, seeing Codi Harrell.? Patient presents to [facility] due to chest pain and shortness of breath, NSTEMI, venous ultrasound negative for DVT, CTA negative for pulmonary embolism, cardiology was consulted, underwent coronary angiography, no obstructive CAD, elevated troponins and shortness of breath likely secondary to Takotsubo syndrome, follow-up with cardiology as outpatient, I have ordered a lupus panel, follow-up with cardiology or primary care for results. If she were to have any recurrent chest pain please go to emergency room. Physical Exam Const: COMMON NORMALS: no acute distress and patient oriented x3 Resp: COMMON NORMALS: normal respiratory effort, No retractions, No use of accessory muscles and clear to auscultation bilaterally AUSCULTATION: clear to auscultation bilaterally Cardio: COMMON NORMALS: regular rate, regular rhythm, S1 normal heart sound present and S2 normal heart sound present RATE: regular rate RHYTHM: regular rhythm HEART SOUNDS: S1 normal heart sound present and S2 normal heart sound present GI: COMMON NORMALS: Normal to inspection, nondistended, normoactive bowel sounds present and non-tender Extremity: COMMON NORMALS: no pedal edema Neuro: COMMON NORMALS: patient oriented x3 Psych: COMMON NORMALS: mental status grossly normal Discharge Data Studies Completed and Pending Completed Studies During Hospitalization Category Date Time Status CT angio chest PE protcl [id number] Routine Cat Scan 09/28/22 09:00 Completed 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 echo complete* [id number]] Routine Ultrasound 09/26/22 12:52 Completed Pending at discharge Category Date Time Status SAMIR Profile Rheumatology Stat Lab 09/27/22 11:02 Received Basic Metabolic Panel AM LABS Lab 09/29/22 04:00 Ordered Basic Metabolic Panel AM LABS Lab 09/30/22 04:00 Ordered Complete Blood Count w/Auto AM LABS Lab 09/29/22 04:00 Ordered Complete Blood Count w/Auto AM LABS Lab 09/30/22 04:00 Ordered Radiology Impressions Chest X-Ray 09/26/22 08:53 IMPRESSION: No acute cardiopulmonary abnormality. Chest CTA 09/28/22 09:00 IMPRESSION: 1. No evidence of pulmonary embolus. 2. No acute pulmonary infiltrates. Lungs well aerated. 3. No pleural fluid. 4. No other suspicious findings. Laboratory Results WBC 9.7 10^3/uL (4.0-10.0) 09/28/22 03:39 RBC 4.05 10^6/uL (4.1-5.3) L 09/28/22 03:39 Hgb 12.3 g/dL (11.5-15.3) 09/28/22 03:39 Hct 37.3 % (37.0-47.0) 09/28/22 03:39 MCV 92.1 fl (81-99) 09/28/22 03:39 MCH 30.4 pg (28.0-34.0) 09/28/22 03:39 MCHC 33.0 g/dL (30.0-36.0) 09/28/22 03:39 RDW 13.1 % (12.1-15.1) 09/28/22 03:39 Plt Count 249 10^3/cmm (130-400) 09/28/22 03:39 MPV 10.9 fL (7.4-10.4) H 09/28/22 03:39 Neut % (Auto) 59.3 % 09/28/22 03:39 Lymph % (Auto) 27.5 % 09/28/22 03:39 Woods % (Auto) 8.4 % 09/28/22 03:39 Eos % (Auto) 3.7 % 09/28/22 03:39 Baso % (Auto) 0.7 % 09/28/22 03:39 Neut # (Auto) 5.76 10^3/uL (1.8-7.7) 09/28/22 03:39 Lymph # (Auto) 2.7 10^3/uL (0.8-4.8) 09/28/22 03:39 Woods # (Auto) 0.8 10^3/uL (0.2-0.9) 09/28/22 03:39 Eos # (Auto) 0.4 10^3/uL (0.0-0.8) 09/28/22 03:39 Baso # (Auto) 0.1 10^3/uL (0.0-0.1) 09/28/22 03:39 Nucleated RBC % (auto) 0 % 09/28/22 03:39 Nucleated RBCs # 0.0 /100WBC 09/28/22 03:39 ESR 10 mm/hr (0-15) 09/27/22 06:00 APTT 88.1 SECONDS (23.9-36.7) H D 09/26/22 19:06 D-Dimer 0.45 ug/mIFEU (0-0.59) 09/27/22 15:57 Sodium 139 mmol/L (136-145) 09/28/22 03:39 Potassium 3.9 mmol/L (3.5-5.1) 09/28/22 03:39 Chloride 106 mmol/L (98-107) 09/28/22 03:39 Carbon Dioxide 24 mmol/L (22-29) 09/28/22 03:39 Anion Gap 12.9 (5-19) 09/28/22 03:39 BUN 8 mg/dL (6-20) 09/28/22 03:39 Creatinine 0.7 mg/dL (0.5-0.9) 09/28/22 03:39 GFR Calculation 87.2 mL/min (90-130) L 09/28/22 03:39 Glucose 86 mg/dL (65-115) 09/28/22 03:39 Estimat Average Glucose 100 09/27/22 06:00 Hemoglobin A1c 5.1 % (4.0-6.0) 09/27/22 06:00 Calculated Osmolality 286 mOsm/kg (285-295) 09/28/22 03:39 Calcium 8.8 mg/dL (8.5-10.5) 09/28/22 03:39 Phosphorus 3.4 mg/dL (2.5-4.5) 09/27/22 06:00 Magnesium 1.9 mg/dL (1.7-2.3) 09/27/22 06:00 Total Bilirubin 0.4 mg/dL (0.15-1.2) 09/26/22 08:05 AST 24 U/L (0-32) 09/26/22 08:05 ALT 12 U/L (0-33) 09/26/22 08:05 Alkaline Phosphatase 60 U/L (35-105) 09/26/22 08:05 Troponin T Baseline 327 ng/L (0-10) H* 09/26/22 08:05 Troponin T 120 Minute 649.9 ng/L (0-10) H 09/26/22 10:22 Delta Troponin T 322.9 ABS# (0-10) H* 09/26/22 10:22 Troponin T Hi Sens 6Hr 513.1 ng/L (0-10) H 09/26/22 14:42 Troponin T Hi Sens 6Hr Delta 186.1 ng/L (0-12) H* 09/26/22 14:42 C-Reactive Protein 3.0 mg/L (0.0-4.9) 09/27/22 06:00 Total Protein 6.7 g/dL (6.6-8.7) 09/26/22 08:05 Albumin 4.2 g/dL (3.5-5.2) 09/26/22 08:05 Globulin 2.5 g/dL (1.3-4.6) 09/26/22 08:05 Triglycerides 114 mg/dL (0-150) 09/27/22 06:00 Cholesterol 216 mg/dL (0-200) H 09/27/22 06:00 LDL Cholesterol, Calc 129 mg/dL (50-129) 09/27/22 06:00 HDL Cholesterol 64 mg/dL (60-100) 09/27/22 06:00 LDL/HDL Ratio 2.02 RATIO (0.00-3.22) 09/27/22 06:00 Cholesterol/HDL Ratio 3.38 mg/dL (0.0-4.40) 09/27/22 06:00 TSH 3.59 uIU/mL (0.27-4.20) 09/27/22 06:00 Vitals Last Vital Signs Temp 98.0 F 09/28/22 07:48 Pulse 58 L 09/28/22 08:00 Resp 16 09/28/22 08:00 BP 105/54 09/28/22 07:48 Pulse Ox 96 09/28/22 08:00 O2 Del Method Room Air 09/28/22 08:00 Discharge Plan Discharge Patient Disposition: Home Condition: Stable Prescriptions: Continued clopidogrel 75 mg tablet 75 mg PO DAILY Qty: 90 3RF lisinopril 2.5 mg tablet 2.5 mg PO DAILY Qty: 90 3RF metoprolol succinate 25 mg tablet extended release 24 hr 12.5 mg PO DAILY Qty: 45 3RF albuterol sulfate 90 mcg/actuation HFA aerosol inhaler 1 puff inhalation QID PRN (Reason: Shortness Of Breath) nitroglycerin [Nitrostat] 0.4 mg tablet, sublingual 0.4 mg sublingual Q5M PRN (Reason: chest pain) Qty: 25 3RF Rx Instructions: do not exceed 3 doses per episode Discharge Orders: Discharge Order (Routine); Ordered 09/28/22 Ordered By: Ajay Chua Referrals: Guerda Arredondo FNP [Nurse Practitioner] - 10/05/22 12:45 pm (Please follow-up with Guerda Arredondo on Monday, October 05 at 12:45p.m. If you have any questions or need to reschedule. Please call ) Codi Harrell FNP [Primary Care Provider] - Discharge Diet: Cardiac Discharge Activity: Resume usual activity Patient Instructions: Metoprolol (By mouth) (Lopressor, Toprol XL), Nitroglycerin (By mouth) (Nitro-Time), Lisinopril (By mouth) (Prinivil, Zestril), Albuterol (By breathing) (ProAir, AccuNeb, Proventil, Proventil..., Clopidogrel (By mouth) (Plavix), Heart Catheterization (DC), Opioid Safety, Post Angiogram Home Care Instructions, Pain Management Discharge Attestations Time Spent in Discharge Care*: greater than 30 min Quality Metrics Clinical Quality Measures [ No reported AMI, CVA or VTE this stay] Coding Level of Care Code 27604 Total time (in minutes) for Discharge: 45 Diagnoses Non-ST elevation NE (NSTEMI) I21.4 Bradycardia R00.1 Left ventricular systolic dysfunction (LVSD) I51.9
[2022-09-28 12:24] LABS: COMPLEMENT COMPONENT C3C 108 mg/dL (83-193); COMPLEMENT COMPONENT C4C 26 mg/dL (15-57); COMPLEMENT, TOTAL (CH50) 41 U/mL (31-60)
[2022-09-28 13:34] LABS: CENTROMERE B ANTIBODY <1.0 NEG AI (<1.0 NEG); JO-1 ANTIBODY <1.0 NEG AI (<1.0 NEG); RNP ANTIBODY <1.0 NEG AI (<1.0 NEG); SCL-70 ANTIBODY <1.0 NEG AI (<1.0 NEG); SJOGREN'S ANTIBODY (SS-A) <1.0 NEG AI (<1.0 NEG); SM ANTIBODY <1.0 NEG AI (<1.0 NEG); SS-B <1.0 NEG AI (<1.0 NEG)
[2022-09-29 08:58] LABS: ANA PATTERN Nuclear, Homogeneous; ANA SCREEN, IFA POSITIVE (NEGATIVE)
[2022-09-29 09:59] LABS: THYROID PEROXIDASE ANTIBODIES 5 IU/mL (<9)
[2022-09-30 11:50] LABS: DNA AB (DS) CRITHIDIA,IFA NEGATIVE (NEGATIVE)
== END 2022-09-28 12:32 | disposition home or self-care (01) ==
LOC: ER 11:39 → CSU 14:42
PROVIDERS: Internal Medicine Cardiovascular Disease; Admitting Provider Hospitalist; Emergency Provider Family Medicine; PCP Nurse Practitioner; Visit Provider Family Medicine
DX: R00.1 Bradycardia, unspecified (principal); Z79.01 Long term (current) use of anticoagulants; F43.10 Post-traumatic stress disorder, unspecified; E78.5 Hyperlipidemia, unspecified; I51.81 Takotsubo syndrome; Z87.891 Personal history of nicotine dependence; J45.909 Unspecified asthma, uncomplicated; F41.9 Anxiety disorder, unspecified; I21.4 Non-ST elevation (NSTEMI) myocardial infarction; R07.89 Other chest pain
CPT/HCPCS: 36415; 71045; 71275; 80048; 80053; 80061; 83036; 83735; 84100; 84443; 84484; 85025; 85347; 85378; 85651; 85730; 86140; 86160; 86162; 86235; 86255; 86376; 93005; 93306; 93458; 93970; 96365; 96366; 96367; 99152; 99153; 99285; C1769; C1887; C1894; G0378; J1644; J2250; J3010; J3480; J3490; J7030; Q0163; Q9967

== ENCOUNTER → 2022-10-05 12:32 | Outpatient (BNVA) | payer OTHER, SELFPAY | PROVIDERS: PCP Nurse Practitioner; Visit Provider Nurse Practitioner Family | DX: I51.81 Takotsubo syndrome (principal); Z87.891 Personal history of nicotine dependence | CPT/HCPCS: 99213 ==

== ENCOUNTER → 2022-10-26 10:54 | Outpatient (BNVA) | payer OTHER, SELFPAY | PROVIDERS: PCP Nurse Practitioner; Visit Provider Internal Medicine Cardiovascular Disease | DX: I51.81 Takotsubo syndrome (principal); Z87.891 Personal history of nicotine dependence | CPT/HCPCS: 99214 ==

== ENCOUNTER 2023-03-22 11:57 | Outpatient (CLI) | payer OTHER, SELFPAY ==
--- NOTE | 2023-03-22 12:00 | USCV_ITS ---
Emiliana Shea Age: 52 Gender: F : 1970 Exam Date: 03/22/2023 12:45 Ordering Phys: Elidia Welsh MD ([email or web address]) Technologist: Jessica Vasques Exam Location: [facility] – [place] Indication: STRESS INDUCED CARDIOMYOPATHY. HISTORY OF 2 [place] BP: 117 / 86 HR: 47 Rhythm: Sinus Technical Quality: Adequate MEASUREMENTS (Male / Female) Normal Values 2D ECHO LV Diastolic Diameter PLAX 4.6 cm 4.2 - 5.9 / 3.9 - 5.3 cm LV Systolic Diameter PLAX 3.1 cm LV Chamber Size 4.1 cm IVS Diastolic Thickness 0.7 cm 0.6 - 1.0 / 0.6 - 0.9 cm IVS Systolic Thickness 1.3 cm LVPW Diastolic Thickness 1.1 cm 0.6 - 1.0 / 0.6 - 0.9 cm LVPW Systolic Thickness 1.5 cm RV Chamber Size 2.6 cm LVOT Diameter 2.0 cm LV Ejection Fraction 2D Teich 61.9 % LV Ejection Fraction MOD 2C 50.3 % LV Ejection Fraction 2C AL 51.0 % LA Diameter 3.0 cm LA Width 3.9 cm LA Height 4.0 cm RA Width 4.0 cm RA Height 4.4 cm Aorta at Sinotubular Diameter 2.8 cm IVC Diameter 1.5 cm M-MODE Aortic Annulus Diameter 3.8 cm LA Ao Ratio MM 0.9 MV E Point Septal Separation 0.7 cm DOPPLER AV Peak Velocity 127.0 cm/s LVOT Peak Velocity 82.0 cm/s AV Area Cont Eq vti 2.1 cm squared AV Area Cont Eq pk 2.1 cm squared MV Area PHT 3.0 cm squared Mitral E to A Ratio 0.9 MV E' Velocity 45.5 cm/s Mitral E to MV E' Ratio 6.7 Mitral E to LV E' Lateral Ratio 6.5 Mitral E to LV E' Septal Ratio 7.0 TV Peak E Velocity 59.0 cm/s RV Acceleration Time 0.2 s RV Ejection Time 0.4 s RV AcT/ET 0.4 FINDINGS Left Ventricle Normal left ventricular size, systolic function and wall thickness, with no regional wall motion abnormalities. Left ventricular ejection fraction is estimated at 55 %. Normal diastolic function. Right Ventricle Normal right ventricular size and systolic function.RVSP could not be calculated due to incomplete tricuspid regurgitation velocity profile. Right Atrium Normal right atrial size. Left Atrium Normal left atrial size. Mitral Valve Structurally normal mitral valve. No mitral valve stenosis. No mitral valve regurgitation. Aortic Valve Structurally normal trileaflet aortic valve. No aortic valve stenosis. No aortic valve regurgitation. Tricuspid Valve Structurally normal tricuspid valve. No tricuspid valve stenosis. Trace tricuspid valve regurgitation. Pulmonic Valve Structurally normal pulmonic valve. No pulmonary valve stenosis. Trace pulmonary valve regurgitation. Pericardium No pericardial effusion. Aorta Normal size aortic root and proximal ascending aorta. IVC Normal IVC dimension with >50% respiratory change of the inferior vena cava. CONCLUSIONS 1. Normal left ventricular size, systolic function and wall thickness, with no regional wall motion abnormalities. Left ventricular ejection fraction is estimated at 55 %. Normal diastolic function. 2. No significant valvular abnormality. 3. When compared to previous study dated 09/26/2022, left ventricular systolic function seems to have improved. Elidia Welsh MD (Electronically Signed) Final Date: 22 March 2023 17:47 S
== END 2023-03-22 11:58 | disposition home or self-care (01) ==
PROVIDERS: PCP Nurse Practitioner; Visit Provider Internal Medicine Cardiovascular Disease
DX: I51.81 Takotsubo syndrome (principal); I51.9 Heart disease, unspecified; Z86.79 Personal history of other diseases of the circulatory system; I25.2 Old myocardial infarction
CPT/HCPCS: 93306

== ENCOUNTER → 2023-06-08 14:00 | Outpatient (BNVA) | payer OTHER, SELFPAY | PROVIDERS: PCP Nurse Practitioner; Visit Provider Internal Medicine | DX: I51.81 Takotsubo syndrome (principal); I51.9 Heart disease, unspecified; E78.5 Hyperlipidemia, unspecified; G43.909 Migraine, unspecified, not intractable, without status migrainosus | CPT/HCPCS: 99214 ==

== ENCOUNTER 2023-08-21 07:31 | Outpatient (CLI) | payer OTHER, SELFPAY ==
--- NOTE | 2023-08-21 07:46 | MM_ITS ---
WS: [id number] BILATERAL SCREENING DIGITAL TOMOSYNTHESIS MAMMOGRAM WITH CAD HISTORY: SCREENING COMPARISON: 08/11/2022, 01/25/2021 Bilateral CC and MLO views with tomosynthesis and synthetic mammography submitted. Computer aided det ection analyzed. Breast composition: The breasts are almost entirely fatty. No suspicious masses, microcalcifications or architectural distortion. Benign calcifications in each breast are stable. IMPRESSION: MM/[place] [id number] BI-RADS: 2-Benign FOLLOW UP: 1 Year Follow-up
== END 2023-08-21 07:32 | disposition home or self-care (01) ==
LOC: RAD 07:31
PROVIDERS: PCP Nurse Practitioner; Visit Provider Nurse Practitioner
DX: Z12.31 Encounter for screening mammogram for malignant neoplasm of breast (principal)
CPT/HCPCS: 77063; 77067

== ENCOUNTER → 2024-02-08 09:32 | Outpatient (BNVA) | payer OTHER, SELFPAY | PROVIDERS: PCP Nurse Practitioner; Visit Provider Internal Medicine | DX: I51.81 Takotsubo syndrome (principal); E78.5 Hyperlipidemia, unspecified; G43.909 Migraine, unspecified, not intractable, without status migrainosus; Z87.891 Personal history of nicotine dependence | CPT/HCPCS: 99213 ==

== ENCOUNTER → 2025-02-06 12:52 | Outpatient (BNVA) | payer OTHER, SELFPAY | PROVIDERS: PCP Nurse Practitioner; Visit Provider Internal Medicine | DX: I51.81 Takotsubo syndrome (principal); E78.5 Hyperlipidemia, unspecified | CPT/HCPCS: 99213 ==

== ENCOUNTER 2025-04-07 10:55 | Outpatient (CLI) | payer OTHER, SELFPAY ==
--- NOTE | 2025-04-07 11:00 | MM_ITS ---
WS: [id number] BILATERAL SCREENING DIGITAL TOMOSYNTHESIS MAMMOGRAM WITH CAD HISTORY: SCREENING COMPARISON: 08/21/2023, 08/11/2022, 01/25/2021 Bilateral CC and MLO views with tomosynthesis and synthetic mammography submitted. Computer aided detection analyzed. Breast composition: The breasts are almost entirely fatty. No suspicious masses, microcalcifications or architectural distortion. Benign calcification in the anterior RIGHT breast. MM/MM scr BI tomosynthesis [id number] IMPRESSION: BI-RADS: 2 - Benign. FOLLOW UP: 1 Year Follow-up
== END 2025-04-07 10:56 | disposition home or self-care (01) ==
LOC: RAD 10:57
PROVIDERS: PCP Nurse Practitioner; Visit Provider Nurse Practitioner
DX: Z12.31 Encounter for screening mammogram for malignant neoplasm of breast (principal); R92.313 Mammographic fatty tissue density, bilateral breasts; R92.1 Mammographic calcification found on diagnostic imaging of breast
CPT/HCPCS: 77063; 77067